=== PATIENT | male | born 1990 | race Two or more races ===

== ENCOUNTER 2025-06-30 11:56 | Inpatient (IN) | payer MEDICAID, OTHER ==
[~2025-06-30] VITALS: Ht 175.3 cm; Wt 68.0 kg
--- NOTE | 2025-06-30 14:05 | ED.PDOC ---
Musculoskeletal HPI Comments Patient is a 35-year-old male with no significant past medical history who comes in due to right-sided inguinal pain along with right knee pain. According to the patient, the right inguinal pain started 2 weeks ago, however, has been progressively worsening over the last 2 days, he describes the pain as constant, stabbing, worsened with walking and relieved by taking ibuprofen and 10/10 in intensity. On review of systems patient is complaining of fever, chills, urinary frequency. Patient had blood work completed outside which shows a platelet count of 779, which together with his symptoms is what prompted him to come to the ER. Patient was noted to have WBC 11.9, hemoglobin 9.3 and thrombocytosis at 891 K. right lower extremity Doppler was negative, however patient was noted to have painful inguinal lymphadenopathy measuring greater than [address] abdomen pelvis with IV contrast was ordered. Chief Complaint: Abnormal LAB's Time Seen by MD: 13:45 Reviewed Notes: Nurses Notes Allergies: Coded Allergies: Penicillins (Verified Allergy, Unknown, 06/30/25) Mode of Arrival: Ambulatory Past Medical History PAST MEDICAL HISTORY: Denies Surgical History: Denies all surgeries Social History Smoker: Non-Smoker Alcohol: Denies ETOH Use Drugs: Denies Drug Use Lives In: Home Constitutional: reports: chills, fever; denies: diaphoresis, fatigue, malaise, sweats, weakness, others EENTM: denies: blurred vision, double vision, ear bleeding, ear discharge, ear drainage, ear pain, ear ringing, eye pain, eye redness, hearing loss, mouth pain, mouth swelling, nasal discharge, nose bleeding, nose congestion, nose pain , photophobia, tearing, throat pain, throat swelling, voice changes, others Respiratory: denies: cough, hemoptysis, orthopnea, SOB at rest, shortness of breath, SOB with excertion, stridor, wheezing, others Cardiovascular: denies: chest pain, dizzy spells, diaphoresis, Dyspnea on exertion, edema, irregular heart beat, left arm pain, lightheadedness, palpitations, PND, syncope, others Gastrointestinal: denies: abdomen distended, abdominal pain, blood streaked bowels, constipated, diarrhea, dysphagia, difficulty swallowing, hematemesis, melena, nausea, poor appetite, poor fluid intake, rectal bleeding, rectal pain, vomiting, others Genitourinary: reports: frequency; denies: burning, dysuria, flank pain, hematuria, incontinence, penile discharge, penile sore, pain, testicle pain, testicle swelling, urgency, others Neurological: denies: dizziness, fainting, headache, left sided numbness, left sided weakness, numbness, paresthesia, pre-existing deficit, right sided numbness, right sided weakness, seizure, speech problems, tingling, tremors, weakness, others Musculoskeletal: denies: back pain, gout, joint pain, joint swelling, muscle pain, muscle stiffness, neck pain, others Integumetry: denies: bruises, change in color, change in hair/nails, dryness, laceration, lesions, lumps, rash, wounds, others Allergic/Immunocompromised: denies: Difficulty Healing, Frequent Infections, Hives, Itching, others Hematologic/Lymphatic: denies: anemia, blood clots, easy bleeding, easy bruising, swollen glands, others Endocrine: denies: excessive hunger, excessive sweating, excessive thirst, excessive urination, flushing, intolerance to cold, intolerance to heat, unexplained weight gain, unexplained weight loss, others Psychiatric: denies: anxiety, bipolar disorder, depression, hopeless, panic disorder, schizophrenia, sleepless, suicidal, others Physical Exam General Appearance: No Apparent Distress, None, Normal HEENT: Normal ENT Inspection, PERRL/EOMI Neck: Non-Tender, Normal, Normal Inspection Respiratory: Lungs Clear, No Respiratory Distress Cardiovascular: No Edema, No JVD, No Murmur, None, No Gallop, Tachycardia Breast Exam: Deferred Gastrointestinal: Non Tender, No Pulsatile Mass, Normal Bowel Sounds Genitalia: Deferred Pelvic: Other (Pelvic exam performed in the presence of a male fellmongering machine operator, patient noted to have minimal to moderate tenderness to palpation in the right inguinal ligament, lymphadenopathy noted.) Rectal: Rectal Exam not done Extremities: Swelling, Tender Neurologic: No Motor Deficits, None, Normal Affect Cerebellar Function: Normal Reflexes: NOT DONE Skin: Dry, Normal Color, Warm Peripheral Pulses: 2+ dorsalis pedis (R), 2+ dorsalis pedis (L), 2+ Radial (R), 2+ Radial (L) Lymphatic: None Was a procedure done? Was a procedure done?: Yes Sedation Sedation?: No Informed consent obtained: No Arthrocentesis Indication: Diagnostic Evaluation Procedure: Sterile Preparation Location: Right Knee Fluid: Amount, Clear Informed consent obtained: Yes Risks/benefits/alt described: Yes Differential Diagnosis EXT Differential Diagnosis: Cellulitis, Deep Vein Thrombosis, Sprain, Strain, Septic, Arthritis, Bursitis X-Ray, Labs, Meds, VS Vital Signs Date Time Temp Pulse Resp B/P (MAP) Pulse Ox O2 Delivery O2 Flow Rate FiO2 06/30/25 11:58 98.0 134 18 125/86 100 98.0 Lab Test 06/30/25 15:13 06/30/25 14:07 Range/Units Urine Color Light-yellow Yellow Urine Clarity Clear Clear Urine pH 6.5 5.0-9.0 Urine Specific [place] 1.015 1.001-1.035 Urine Protein Negative Negative Urine Ketones 2+ H Negative Urine Blood Negative Negative /uL Urine Nitrite Negative Negative Urine Bilirubin Negative Negative Urine Urobilinogen Normal Negative mg/dL Urine Leukocyte Esterase Negative Negative /uL Urine RBC 1 0 - 3 /hpf Urine Microscopic WBC < 1 0-3 /HPF Urine Squamous Epithelial Cells None seen <5 /hpf Urine Bacteria None seen None Seen /hpf Urine Mucus Few None Seen Urine Glucose Normal Normal mg/dL Urine Opiates Screen Neg NEGATIVE Urine Fentanyl Screen Neg NEGATIVE Urine Barbiturates Screen Neg NEGATIVE Urine Phencyclidine Screen Neg NEGATIVE Urine Amphetamines Screen Neg NEGATIVE Urine Benzodiazepines Screen Neg NEGATIVE Urine Cocaine Screen Neg NEGATIVE Urine Cannabinoids Screen Neg NEGATIVE White Blood Count 11.9 H 4.4-10.8 10^3/uL Red Blood Count 3.96 L 4.5-5.90 10^6/uL Hemoglobin 9.3 L 13.5-17.5 g/dL Hematocrit 29.0 L 41.0-53.0 % Mean Corpuscular Volume 73.2 L 80.0-100.0 fL Mean Corpuscular Hemoglobin 23.5 L 28.0-32.0 pg Mean Corpuscular Hemoglobin Concent 32.2 32.0-36.0 g/dL Red Cell Distribution Width 19.4 H 11.8-14.3 % Platelet Count 891 *H 140-450 10^3/uL Mean Platelet Volume 6.7 L 6.9-10.8 fL Neutrophils (%) (Auto) 84.8 H 37.0-80.0 % Lymphocytes (%) (Auto) 8.9 L 10.0-50.0 % Monocytes (%) (Auto) 5.7 0.0-12.0 % Eosinophils (%) (Auto) 0.1 0.0-7.0 % Basophils (%) (Auto) 0.5 0.0-2.0 % Neutrophils # (Auto) 10.1 H 1.6-8.6 10 ^3/uL Lymphocytes # (Auto) 1.1 0.4-5.4 10 ^3/uL Monocytes # (Auto) 0.7 0-1.3 10 ^3/uL Eosinophils # (Auto) 0 0-0.8 10 ^3/uL Basophils # (Auto) 0.1 0-0.2 10 ^3/uL Nucleated Red Blood Cells 0.0 % Platelet Estimate Markedly increased Large Platelets Few Hypochromasia (manual) Slight Microcytosis Slight Prothrombin Time 12.2 H 9.3-11.8 sec Prothrombin Time INR 1.17 H 0.9-1.15 Activated Partial Thromboplast Time 37.0 H 24.5-34.5 SEC Sodium Level 137 136-145 mmol/L Potassium Level 3.7 3.5-5.1 mmol/L Chloride Level 99 98-107 mmol/L Carbon Dioxide Level 27 20-31 mmol/L Anion Gap 11 5-15 Blood Urea Nitrogen 10 9-23 mg/dL Creatinine 0.88 0.700-1.30 mg/dL Glomerular Filtration Rate Calc 116 >90 mL/min BUN/Creatinine Ratio 11.4 10.0-20.0 Serum Glucose 100 74-106 mg/dL Hemoglobin A1c 5.5 <5.7 % A1C Calcium Level 9.8 8.7-10.4 mg/dL Phosphorus Level 3.2 2.4-5.1 mg/dL Magnesium Level 1.9 1.6-2.6 mg/dL Ferritin 555.5 H 22-322 ng/mL Total Bilirubin 0.4 0.2-1.0 mg/dL Direct Bilirubin 0.1 <0.3 mg/dL Aspartate Amino Transferase (AST) 35 13-40 U/L Alanine Aminotransferase (ALT) 52 H 7-40 U/L Alkaline Phosphatase 204 H 46-116 U/L Lactate Dehydrogenase 176 120-246 U/L Total Protein 9.8 H 5.7-8.2 g/dL Albumin 4.4 3.2-4.8 g/dL Triglycerides Level 77 < 150 mg/dL Cholesterol Level 180 < 200 mg/dL LDL Cholesterol 146 H < 100 mg/dL HDL Cholesterol 27 L 40-59 mg/dL Vitamin B12 Level 674 211-911 pg/mL Vitamin D 25-Hydroxy 39.7 30.0-100 ng/mL Thyroid Stimulating Hormone (TSH) 0.26 L 0.55-4.78 uIU/mL Microbiology Date/Time Source Procedure Growth Status 06/30/25 15:13 Voided Urine Urine Culture - Preliminary No growth Resulted Time of 1ST Reevaluation: 13:45 Reevaluation 1ST: Unchanged Patient Education/Counseling: Diagnosis, Treatment, Prognosis, Need For Follow Up Family Education/Counseling: No Family Present Departure 1 Departure Time of Disposition: 15:40 Impression: Primary Impression: Pelvic abscess Additional Impressions: STI (sexually transmitted infection) Septic arthritis Qualified Codes: M00.9 - Pyogenic arthritis, unspecified DVT (deep venous thrombosis) Qualified Codes: I82.401 - Acute embolism and thrombosis of unspecified deep veins of right lower extremity Essential thrombocytosis Malignancy Disposition: 09 ADMITTED INPATIENT Condition: Guarded Comments Patient was noted to be tachycardic, with leukocytosis, diagnostic arthrocentesis was performed with minimal fluid yield. Patient was admitted to the hospital for further management Critical Care Note Critical Care Time?: No Stability Stability form required: JOSEPH Nava RESIDENT Jun 30, 2025 14:05
[2025-06-30 14:20] LABS: Hemoglobin 9.3 g/dL (13.5-17.5); Nucleated Red Blood Cells % 0.0 %
[2025-06-30 14:21] LABS: Hematocrit 29.0 % (41.0-53.0); Mean Corpuscular Hemoglobin 23.5 pg (28.0-32.0); Mean Corpuscular Volume 73.2 fL (80.0-100.0)
[2025-06-30 14:36] LABS: Chloride 99 mmol/L (98-107); Potassium 3.7 mmol/L (3.5-5.1); Sodium 137 mmol/L (136-145)
[2025-06-30 14:37] LABS: Anion Gap 11 (5-15); Calcium 9.8 mg/dL (8.7-10.4); Carbon Dioxide 27 mmol/L (20-31)
[2025-06-30 14:42] LABS: BUN/Creatinine Ratio 11.4 (10.0-20.0); Blood Urea Nitrogen 10 mg/dL (9-23); Glucose 100 mg/dL (74-106)
--- NOTE | 2025-06-30 14:56 | DVH ---
Clinical History: R inguinal and knee tenderness Comparison: None Technique: Duplex Doppler evaluation of the deep venous system of the left lower extremity from the common femoral vein to the popliteal vein including color Doppler and spectral/pulsed waveform analysis was performed. Findings: The RIGHT common femoral vein demonstrates appropriate compressibility and waveform variability. There is compressibility/patency of the great saphenous vein at the proximal thigh. The femoral vein demonstrates appropriate compressibility and waveform variability. The deep femoral vein demonstrates appropriate compressibility and waveform variability. The popliteal vein demonstrates appropriate compressibility and waveform variability. There is normal compressibility at the tibioperoneal trunk. Right inguinal lymph nodes the largest measures 3.1 x 2.2 x 0.8 cm. Cortex measures 0.4 cm. Impression: 1. No left deep venous thrombosis. 2. If clinical concern/symptoms persist or worsen, short-interval follow-up study is suggested.
[2025-06-30 15:25] LABS: Urine Protein, UAD Negative (Negative)
--- NOTE | 2025-06-30 15:50 | DVHHPRES ---
History of Present Illness Resident Creating Document: RICHELLE FREEMAN History of Present Illness Luis Chino is a 35 year old male patient who presents to the ED with chief complaint of right groin pain. Per patient pain started approximately four months ago in the right groin, progress to right knee pain months ago, required using walker to mobilize approximately one month ago and finally went to chiropractor which worsened the pain. Patient was evaluated in a clinic ([facility]) who ordered complementary workup diagnosed in dyslipidemia, prediabetes, microcytic anemia, thrombocytopenia (ruled out STI including HIV, gonorrhea, chlamydia, syphilis and hepatitis), suggesting ibuprofen with partial relief of lower limb pain and evaluation in ER which prompted his visit. Patient also reports unintentional weight loss of 20 lb in the past four months, fever, chills and night sweats. Denies any other associated symptom. Past medical history: Dyslipidemia, prediabetes (5.8% hemoglobin), microcytic anemia, gastritis Surgical history: Denies Family history: And had breast cancer in aunt had stomach cancer. Social history: Lives in [place] with family (next of kin is ) he has been since the age of 23 in a monogamous relationship, STI workup was negative less than one week ago. Ex tobacco abuse (three cigarettes per day for two months) quit a proximally five years ago. 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 Denies current tobacco, alcohol and other drug abuse Allergies: Penicillin Home medication: Ibuprofen Patient seen and examined at bedside. Currently has no new complaints. Completed arthrocentesis of right knee with scares synovial fluid. Ordered right lower limb ultrasound which ruled out DVT and evidence right inguinal lymph nodes. Ordered abdomen and pelvis CT shows probable septic arthritis of right hip. Patient admitted for further evaluation. Past Medical History Per HPI Past Surgical History Per HPI Family History Per HPI Past Social History Per HPI Review of Systems Review of Systems Per HPI Allergies: Coded Allergies: Penicillins (Verified Allergy, Unknown, 06/30/25) Exam Vital Signs Vital Signs Date Time Temp Pulse Resp B/P (MAP) Pulse Ox O2 Delivery O2 Flow Rate FiO2 06/30/25 11:58 98.0 134 18 125/86 100 98.0 Exam Patient lying in bed, in no acute distress General: Lucid, afebrile, mucosae are moist Cardiovascular: Normal, tachycardic S1 and S2. No murmurs, gallops or rubs Respiratory: Normal ventilation mechanics. Clear lung sounds on auscultation Abdomen: Soft, nontender, no organomegaly, normal bowel sounds MSK/skin: Mobilizes 4 limbs, but presents decreased mobilization in right limb. Skin is dry and warm. Right knee swelling more than left, associated with warmth and mild tenderness. Right groin lymphadenopathy which is painful on palpation. Neurological: Oriented in 3 spheres. No motor no sensitive deficits. Pupils are isocoric and reactive Labs/Xrays Labs Test 06/30/25 15:13 06/30/25 14:07 Range/Units Urine Color Light-yellow Yellow Urine Clarity Clear Clear Urine pH 6.5 5.0-9.0 Urine Specific [place] 1.015 1.001-1.035 Urine Protein Negative Negative Urine Ketones 2+ H Negative Urine Blood Negative Negative /uL Urine Nitrite Negative Negative Urine Bilirubin Negative Negative Urine Urobilinogen Normal Negative mg/dL Urine Leukocyte Esterase Negative Negative /uL Urine RBC 1 0 - 3 /hpf Urine Microscopic WBC < 1 0-3 /HPF Urine Squamous Epithelial Cells None seen <5 /hpf Urine Bacteria None seen None Seen /hpf Urine Mucus Few None Seen Urine Glucose Normal Normal mg/dL White Blood Count 11.9 H 4.4-10.8 10^3/uL Red Blood Count 3.96 L 4.5-5.90 10^6/uL Hemoglobin 9.3 L 13.5-17.5 g/dL Hematocrit 29.0 L 41.0-53.0 % Mean Corpuscular Volume 73.2 L 80.0-100.0 fL Mean Corpuscular Hemoglobin 23.5 L 28.0-32.0 pg Mean Corpuscular Hemoglobin Concent 32.2 32.0-36.0 g/dL Red Cell Distribution Width 19.4 H 11.8-14.3 % Platelet Count 891 *H 140-450 10^3/uL Mean Platelet Volume 6.7 L 6.9-10.8 fL Neutrophils (%) (Auto) 84.8 H 37.0-80.0 % Lymphocytes (%) (Auto) 8.9 L 10.0-50.0 % Monocytes (%) (Auto) 5.7 0.0-12.0 % Eosinophils (%) (Auto) 0.1 0.0-7.0 % Basophils (%) (Auto) 0.5 0.0-2.0 % Neutrophils # (Auto) 10.1 H 1.6-8.6 10 ^3/uL Lymphocytes # (Auto) 1.1 0.4-5.4 10 ^3/uL Monocytes # (Auto) 0.7 0-1.3 10 ^3/uL Eosinophils # (Auto) 0 0-0.8 10 ^3/uL Basophils # (Auto) 0.1 0-0.2 10 ^3/uL Nucleated Red Blood Cells 0.0 % Platelet Estimate Markedly increased Large Platelets Few Hypochromasia (manual) Slight Microcytosis Slight Sodium Level 137 136-145 mmol/L Potassium Level 3.7 3.5-5.1 mmol/L Chloride Level 99 98-107 mmol/L Carbon Dioxide Level 27 20-31 mmol/L Anion Gap 11 5-15 Blood Urea Nitrogen 10 9-23 mg/dL Creatinine 0.88 0.700-1.30 mg/dL Glomerular Filtration Rate Calc 116 >90 mL/min BUN/Creatinine Ratio 11.4 10.0-20.0 Serum Glucose 100 74-106 mg/dL Calcium Level 9.8 8.7-10.4 mg/dL Ferritin 555.5 H 22-322 ng/mL SEPSIS Sepsis Screen Date sepsis recognized/suspect: Jun 30, 2025 Time Sepsis recognized/suspect: 1200 Recent Procedure: No On Antibiotic Therapy: No Respiratory Rate >20: No Heart Rate >90: Yes Temp<36 C (96.8 F) or >38.3 C: No SBP <90 or MAP <65 mmHG: No New Acute Mental Status Change: No Is the patient on CPAP, BIPAP,: No Physician Orders Rt Lower Dvt (06/30/25 13:58) Ct Ab Pel With Iv Con Only (06/30/25 15:35) Vital Signs Date Time Temp Pulse Resp B/P (MAP) Pulse Ox O2 Delivery O2 Flow Rate FiO2 06/30/25 11:58 98.0 134 18 125/86 100 98.0 Laboratory Tests Test 06/30/25 14:07 White Blood Count 11.9 10^3/uL (4.4-10.8) H Assessment/Plan Assessment/Plan ASSESSMENT Probable septic arthritis of right hip Rule out abscess of right suprapatellar region Ruled out DVT Transaminitis Dyslipidemia Prediabetes Microcytic anemia with elevated ferritin Thrombocytosis probably secondary to sepsis Gastritis Ruled out STI Ex ethanol abuse PLAN Patient was admitted to telemetry. Indicated IV fluids and empiric IV antibiotics (vancomycin and levofloxacin). Patient is allergic to penicillin Obtain arthrocentesis of right knee quit scares fluid, sent to culture Obtain moseley cultures Obtain lower limb ultrasound which ruled out DVT and evidence lymphadenopathy of right groin Obtain abdomen and pelvis CT which shows probable septic arthritis of right hip. Presents associated lymphadenopathies. Ultrasound of right knee shows who collection above knee joint. Consulted interventional Radiology for eventual aspiration of right hip during and aspiration of fluid collection above right knee Ordered peripheral smear to evaluate morphology of cells. Differential diagnosis includes infection versus malignancy. If deemed necessary, patient should undergo biopsy of lymph node in right groin. Ordered echocardiogram due to sepsis, to rule out valvulopathy versus vegetations. Goals of care discussed with patient for over 18 minutes: Full code status Discussed plan with Dr. Clayton, patient and nurses: Patient admitted to telemetry. Currently under empiric IV antibiotic and IV fluids. Obtain right knee arthrocentesis with scares fluid. Consulted interventional Radiology to evaluate arthrocentesis of right hip and aspiration of fluid collection above right knee. If deemed necessary patient should undergo biopsy of a lymph node of right groin. Ordered echocardiogram. Patient has poor prognosis Plan discussed with: Patient, Other (Nurses) Date of Service: Jun 30, 2025 Billing Provider: DANIAL CLAYTON MD Common Visit Codes: 35612-[id number] INP/OBS CARE (HIGH) Secondary Visit Codes: 91489-[id number] CARE PLAN 30 MINUTES RICHELLE FREEMAN RESIDENT Jun 30, 2025 15:50
[2025-06-30 17:00] LABS: Triglycerides 77.0 mg/dL (< 150)
[2025-06-30 17:01] LABS: Magnesium 1.9 mg/dL (1.6-2.6)
[2025-06-30 17:02] LABS: Cholesterol 180.0 mg/dL (< 200)
[2025-06-30 17:05] LABS: HDL Cholesterol 27.0 mg/dL (40-59)
[2025-06-30 17:07] LABS: INR 1.17 (0.9-1.15); Partial Thromboplastin Time 37.0 SEC (24.5-34.5); Prothrombin Time 12.2 sec (9.3-11.8)
[2025-06-30 17:25] LABS: Alanine Aminotransferase 52.0 U/L (7-40); Albumin 4.4 g/dL (3.2-4.8); Alkaline Phosphatase 204.0 U/L (46-116); Bilirubin, Total 0.4 mg/dL (0.2-1.0); Total Protein 9.8 g/dL (5.7-8.2)
[2025-06-30 17:38] LABS: Bilirubin, Direct 0.1 mg/dL (<0.3)
--- NOTE | 2025-06-30 18:02 | DVH ---
Indication: Painful inguinal lymphadenopathy Technique: CT axial images of the abdomen and pelvis are obtained with intravenous contrast. Coronal and sagittal reformats were obtained. Radiation Dose Information: CTDI volume is 11.72 mGy. Dose-length product is 648.76 mGy*cm Comparison: None FINDINGS: Right hepatic dome not completely visualized. Lung bases demonstrate no pleural effusion. Adrenal glands, spleen, pancreas unremarkable. No enhancing hepatic lesion. Again the right hepatic dome is not completely characterized. No CT evidence for cholelithiasis. No hydronephrosis. Gastric distention. Small bowel loops are normal in caliber. Colonic diverticula. Moderate volume stool in the colon. Normal appendix. Abdominal aorta normal in caliber. Periaortic/retroperitoneal lymphadenopathy measuring up to 10 mm. Moderate distended. No free pelvic fluid. There is right inguinal lymphadenopathy measuring up to 14 x 19 mm. Right iliac lymphadenopathy measuring up to 14 mm. There appears to be a right hip joint effusion, suboptimally characterized. IMPRESSION: Right hip effusion which is suboptimally characterized, concerning for potential septic arthritis and other etiologies given the associated lymphadenopathy. Recommend clinical correlation, ID/orthopedic consultation. MRI of the right hip with and without also recommended to further evaluate. Right inguinal, right iliac and retroperitoneal lymphadenopathy, possibly secondary to the underlying right hip fluid collection/process. Gastric distention. Other findings as described.
--- NOTE | 2025-06-30 18:08 | DVHNC2 ---
Procedure - Arthrocentesis Date/Time: 06/30/2517:45 Indication: Synovial fluid sampling, r/o septic arthritis Procedure shredder operator: Dr. Taylor resident Print Shop Chief Clerk: Dr. Devlin Location: Right Knee Appropriate consent was obtained and is documented on the chart. The skin overlying the joint was prepped and draped in a sterile fashion. Under constant aspiration, a 20g needle was advanced into the joint space. Clear fluid was evacuated from the joint. A total of 2cc of fluid was removed. The needle was removed and bleeding was controlled. There were no major complications and the patient tolerated the procedure well. Synovial fluid samples were sent to the lab for analysis. Total time: 20 mins EBL: < 5 cc JOSEPH TAYLOR Jun 30, 2025 18:08
[2025-06-30] MEDS: ONDANSETRON HCL 4 MG/2 ML VIAL IV PRN (18:24)
[2025-06-30] MEDS: ENOXAPARIN SOD 100 MG/1 ML SYRINGE SC ONE (18:25)
[2025-06-30] MEDS: MORPHINE SULFATE INJ 2 MG/ml SYRG IV PRN (18:27)
[2025-06-30] MEDS ORDERED: VANCOMYCIN PER PHARMACY 0 MG IV SCH (18:45)
[2025-06-30] MEDS: IOHEXOL 300 MG/ML 100ML BOTTLE IJ ONE (18:47)
[2025-06-30] MEDS: ACETAMINOPHEN 325 MG TAB PO PRN (18:53)
[2025-06-30] MEDS: LACTATED RINGER'S 2,000 ML IV ONE (19:02)
--- NOTE | 2025-06-30 19:09 | ECG ---
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
[2025-06-30] MEDS: VANCOMYCIN 1.5GM/250ML 250 ML IV ONE (20:32)
[2025-06-30 20:42] VITALS: PULSE 135; RESP 17; O2SAT 100
--- NOTE | 2025-06-30 21:21 | DVH ---
Exam: US RIGHT LOWER EXTREMITY ULTRASOU Date: 06/30/2025 06:16 PM Clinical History: Rule out septic arthritis of the knee Comparison: None Technique: Targeted sonographic evaluation of the soft tissues of the right lower extremity (knee) was obtained utilizing grayscale and color Doppler imaging. Findings: There is no evidence for drainable collection. There is no evidence for solid or cystic mass in the site. No vascular abnormalities identified at this site. Complex fluid above of the right knee measuring 4.7 x 4.6 x 0.7 cm. IMPRESSION: 1. Complex fluid above the right knee.
[2025-06-30] MEDS: LACTATED RINGER'S 1,000 ML IV ONE (21:57)
[2025-06-30 22:00] VITALS: PULSE 132; RESP 22; O2SAT 100
[2025-06-30] MEDS ORDERED: VANCOMYCIN 1GM/250ML KIT 250 ML IV SCH (22:00)
[2025-06-30 22:24] LABS: Total Iron Binding Capacity 255.0 ug/dL (250-425)
[2025-06-30 22:24] LABS: Amphetamine Screen, Urine Neg (NEGATIVE); Barbiturate Scree,Urine Neg (NEGATIVE); Benzodiazephine Screen, Urine Neg (NEGATIVE); Cannabinoid Screen, Urine Neg (NEGATIVE); Cocaine Screen, Urine Neg (NEGATIVE); Opiate Scree,Urine Neg (NEGATIVE); Phencyclidine Screen, Urine Neg (NEGATIVE)
[2025-06-30 22:27] LABS: Free T4 (Free Thyroxine) 1.32 ng/dL (0.89-1.76)
[2025-06-30 22:29] LABS: Iron 17.0 ug/dL (65-175)
--- NOTE | 2025-07-01 05:06 | DVH ---
CHEST RADIOGRAPH Indication: Sepsis Technique: Single frontal view of the chest was obtained Comparison: None FINDINGS: Lines and Tubes: None Lungs: No focal consolidation. Pleura: No effusion. No pneumothorax. Cardiomediastinal contours: Unremarkable Bones: No acute osseous abnormality. IMPRESSION: 1. No acute cardiopulmonary disease.
[2025-07-01] MEDS: VANCOMYCIN 1GM/250ML KIT 250 ML IV SCH (06:16)
[2025-07-01 07:43] LABS: Hemoglobin 9.1 g/dL (13.5-17.5); Nucleated Red Blood Cells % 0.0 %
[2025-07-01 07:45] LABS: Hematocrit 28.2 % (41.0-53.0); Mean Corpuscular Hemoglobin 23.5 pg (28.0-32.0); Mean Corpuscular Volume 72.7 fL (80.0-100.0)
[2025-07-01 08:10] VITALS: PULSE 113; RESP 17; O2SAT 98
[2025-07-01 09:24] LABS: Alanine Aminotransferase 34 U/L (7-40); Anion Gap 11 (5-15); Calcium 9.6 mg/dL (8.7-10.4); Carbon Dioxide 25 mmol/L (20-31); Chloride 102 mmol/L (98-107); Potassium 3.6 mmol/L (3.5-5.1); Sodium 138 mmol/L (136-145)
[2025-07-01 09:27] LABS: Albumin 3.9 g/dL (3.2-4.8)
[2025-07-01 09:28] LABS: Bilirubin, Total 0.5 mg/dL (0.2-1.0)
[2025-07-01] MEDS: ENOXAPARIN SOD 40 MG/0.4 ML SYRINGE SC SCH (09:31)
[2025-07-01 09:33] LABS: Alkaline Phosphatase 173 U/L (46-116); BUN/Creatinine Ratio 6.8 (10.0-20.0); Blood Urea Nitrogen < 5 mg/dL (9-23); Glucose 121 mg/dL (74-106); Total Protein 8.8 g/dL (5.7-8.2)
[2025-07-01] MEDS ORDERED: ENOXAPARIN SOD 100 MG/1 ML SYRINGE SC SCH (10:00)
--- NOTE | 2025-07-01 13:18 | DVH ---
EXAM: MRI MRI R HIP WO CONTRAST INDICATION: right hip joint effusion TECHNIQUE: Multiplanar and multisequence MR imaging of the right hip was performed in the absence of gadolinium contrast material. COMPARISON: None FINDINGS: [BONE]: Sacroiliac joints and pubic symphysis intervals are normal. Inconspicuous asymmetric osteitis of the right femoral head to neck and right acetabulum. Possible developing osseous erosion incompletely characterized. [MUSCLES]: Mild muscle edema surrounding the right hip joint primarily affecting gluteus medius muscle belly. [JOINT SPACE]: Right hip joint effusion with asymmetric severe right hip joint space loss suspected. Primary diagnosis of exclusion led by septic arthritis. Alternative differential includes crystalline deposition arthropathy such as pseudogout versus gout. Recommend joint aspiration. [ALIGNMENT]: Hip alignment is normal. The femoral head neck contour is normal. [BURSAE]: No trochanteric or iliopsoas bursal collection. [LABRUM/CARTILAGE]: Suspected macerated tearing of the right superior labrum . Diffuse cartilage thinning [LIGAMENTS]: Intact ligamentum teres, acetabular transverse ligament, and joint capsular ligaments. [TENDONS:] Intact rectus femoris, hamstring, and gluteal tendons. [OTHER]: None IMPRESSION: 1. Right hip joint effusion with asymmetric severe right hip joint space loss and suspected developing osseous erosion. 2. Primary diagnosis of exclusion is septic arthritis. 3. Alternative differential includes crystalline deposition arthropathy such as pseudogout versus gout. 4. Recommend joint aspiration.
[2025-07-01 14:00] VITALS: BP 130/94; PULSE 138; RESP 18; TEMP 98.7; O2SAT 100
[2025-07-01 15:30] VITALS: BP 121/85; PULSE 118; RESP 16; TEMP 98.8; O2SAT 97
--- NOTE | 2025-07-01 15:30 | DVHINCON2 ---
Date of service: Jul 01, 2025 Reason for Consultation Right hip and right knee pain History of Present Illness Mr. Barfield is a 35-year-old male who was brought to the hospital due to complaints of a right hip and right knee pain. Patient notes that he has been experiencing right hip pain for several months but noticed that over the last month his pain has been significantly worsened and is limiting his physical activities and quality of life. Patient notes that his pain is radiating into his right knee and will develop severe swelling to his right knee and is unable to walk or bear weight on that knee when it gets inflamed. Patient reports that he went to a chiropractor where he had an adjustment but felt that his pain was worsened afterwards and decided to come into the office for an evaluation. Past Medical History Dyslipidemia, prediabetes, and gastritis Past Surgical History Denies Family History Noncontributory Social History Patient denied smoking, EtOH, or illicit substance abuse Allergies: Coded Allergies: Penicillins (Verified Allergy, Unknown, 06/30/25) Current Medications Current Medications Medications (Trade) Dose Ordered Sig/Merly Route PRN Reason Start Time Stop Time Status Last Admin Acetaminophen (Tylenol Tablet) 325 mg Q4HP PRN PO MILD PAIN (1-3 PAIN SCALE) 06/30/25 16:00 07/01/25 06:34 Ondansetron HCl (Zofran) 4 mg Q4HP PRN IV NAUSEA / VOMITING 06/30/25 16:00 06/30/25 18:24 Morphine Sulfate 2 mg Q4HPRN PRN IV SEVERE PAIN (7-10 PAIN SCALE) 06/30/25 16:00 06/30/25 18:27 Enoxaparin Sodium (Lovenox) 70 mg Q12HR SC 07/01/25 10:00 06/30/25 18:45 DC Vancomycin HCl 0 ml @ 0 mls/hr PER PHARMACY IV 06/30/25 18:45 Levofloxacin/ Dextrose 100 ml @ 100 mls/hr DAILY IV 07/01/25 10:00 07/01/25 09:31 Vancomycin HCl 250 ml @ 200 mls/hr Q8HR IV 06/30/25 22:00 06/30/25 22:20 DC Enoxaparin Sodium (Lovenox) 40 mg DAILY SC 07/01/25 10:00 07/01/25 09:31 Vancomycin HCl 250 ml @ 200 mls/hr Q8HR IV 07/01/25 06:00 07/01/25 14:00 Review of Systems 10 point review of systems negative except as per HPI Vital Signs Vital Signs Date Time Temp Pulse Resp B/P (MAP) Pulse Ox O2 Delivery O2 Flow Rate FiO2 07/01/25 12:00 98.8 118 16 121/85 (97) 97 98.8 07/01/25 08:19 Room Air* 0 21 Physical Exam General appearance: A&O x4 in no acute distress HEENT: Normal ENT inspection, pharynx normal, TMs normal Neck: Full range of motion, nontender, normal inspection Respiratory: Chest nontender, without accessory muscle use, no respiratory distress Cardiovascular: No edema, no JVD, normal peripheral pulses Gastrointestinal: Soft, nontender, no organomegaly. Musculoskeletal: Right hip range of motion grossly limited with pain on movement, right knee range of motion 0-120 with mild pain on movement, no calf tenderness, normal capillary refill, no pedal edema, neurovascularly intact. Skin: Dry, normal color, warm Lymphatic: No adenopathy Labs/Diagnostic Data Labs Test 07/01/25 06:42 06/30/25 19:09 06/30/25 16:27 06/30/25 15:13 Range/Units White Blood Count 8.9 # 4.4-10.8 10^3/uL Red Blood Count 3.87 L 4.5-5.90 10^6/uL Hemoglobin 9.1 L 13.5-17.5 g/dL Hematocrit 28.2 L 41.0-53.0 % Mean Corpuscular Volume 72.7 L 80.0-100.0 fL Mean Corpuscular Hemoglobin 23.5 L 28.0-32.0 pg Mean Corpuscular Hemoglobin Concent 32.3 32.0-36.0 g/dL Red Cell Distribution Width 19.3 H 11.8-14.3 % Platelet Count 682 H 140-450 10^3/uL Mean Platelet Volume 7.8 6.9-10.8 fL Neutrophils (%) (Auto) 77.7 37.0-80.0 % Lymphocytes (%) (Auto) 13.6 10.0-50.0 % Monocytes (%) (Auto) 7.9 0.0-12.0 % Eosinophils (%) (Auto) 0.1 0.0-7.0 % Basophils (%) (Auto) 0.7 0.0-2.0 % Neutrophils # (Auto) 6.9 1.6-8.6 10 ^3/uL Lymphocytes # (Auto) 1.2 0.4-5.4 10 ^3/uL Monocytes # (Auto) 0.7 0-1.3 10 ^3/uL Eosinophils # (Auto) 0 0-0.8 10 ^3/uL Basophils # (Auto) 0.1 0-0.2 10 ^3/uL Nucleated Red Blood Cells 0.0 % Sodium Level 138 136-145 mmol/L Potassium Level 3.6 3.5-5.1 mmol/L Chloride Level 102 98-107 mmol/L Carbon Dioxide Level 25 20-31 mmol/L Anion Gap 11 5-15 Blood Urea Nitrogen < 5 L 9-23 mg/dL Creatinine 0.73 0.700-1.30 mg/dL Glomerular Filtration Rate Calc 123 >90 mL/min BUN/Creatinine Ratio 6.8 L 10.0-20.0 Serum Glucose 121 H 74-106 mg/dL Calcium Level 9.6 8.7-10.4 mg/dL Total Bilirubin 0.5 0.2-1.0 mg/dL Aspartate Amino Transferase (AST) 18 13-40 U/L Alanine Aminotransferase (ALT) 34 7-40 U/L Alkaline Phosphatase 173 H 46-116 U/L Total Protein 8.8 H 5.7-8.2 g/dL Albumin 3.9 3.2-4.8 g/dL Lactic Acid Level 1.5 0.4-2.0 mmol/L Reticulocyte Count (auto) 0.58 0.5-1.5 % Iron Level 17 L 65-175 ug/dL Total Iron Binding Capacity 255 250-425 ug/dL Percent Iron Saturation 6.7 L 20-55 % Folic Acid 12.09 >5.38 ng/mL Free Thyroxine (T4) Calculated 1.32 0.89-1.76 ng/dL Total Triiodothyronine (TT3) 1.51 0.60-1.81 ng/mL Urine Color Light-yellow Yellow Urine Clarity Clear Clear Urine pH 6.5 5.0-9.0 Urine Specific [place] 1.015 1.001-1.035 Urine Protein Negative Negative Urine Ketones 2+ H Negative Urine Blood Negative Negative /uL Urine Nitrite Negative Negative Urine Bilirubin Negative Negative Urine Urobilinogen Normal Negative mg/dL Urine Leukocyte Esterase Negative Negative /uL Urine RBC 1 0 - 3 /hpf Urine Microscopic WBC < 1 0-3 /HPF Urine Squamous Epithelial Cells None seen <5 /hpf Urine Bacteria None seen None Seen /hpf Urine Mucus Few None Seen Urine Glucose Normal Normal mg/dL Urine Opiates Screen Neg NEGATIVE Urine Fentanyl Screen Neg NEGATIVE Urine Barbiturates Screen Neg NEGATIVE Urine Phencyclidine Screen Neg NEGATIVE Urine Amphetamines Screen Neg NEGATIVE Urine Benzodiazepines Screen Neg NEGATIVE Urine Cocaine Screen Neg NEGATIVE Urine Cannabinoids Screen Neg NEGATIVE Test 06/30/25 14:07 Range/Units Platelet Estimate Markedly increased Large Platelets Few Hypochromasia (manual) Slight Microcytosis Slight Prothrombin Time 12.2 H 9.3-11.8 sec Prothrombin Time INR 1.17 H 0.9-1.15 Activated Partial Thromboplast Time 37.0 H 24.5-34.5 SEC Hemoglobin A1c 5.5 <5.7 % A1C Phosphorus Level 3.2 2.4-5.1 mg/dL Magnesium Level 1.9 1.6-2.6 mg/dL Ferritin 555.5 H 22-322 ng/mL Direct Bilirubin 0.1 <0.3 mg/dL Lactate Dehydrogenase 176 120-246 U/L Triglycerides Level 77 < 150 mg/dL Cholesterol Level 180 < 200 mg/dL LDL Cholesterol 146 H < 100 mg/dL HDL Cholesterol 27 L 40-59 mg/dL Vitamin B12 Level 674 211-911 pg/mL Vitamin D 25-Hydroxy 39.7 30.0-100 ng/mL Thyroid Stimulating Hormone (TSH) 0.26 L 0.55-4.78 uIU/mL Microbiology Date/Time Source Procedure Growth Status 06/30/25 15:13 Voided Urine Urine Culture - Preliminary No growth Resulted Right hip MRI reviewed and demonstrated: Right hip joint effusion with asymmetric severe right hip joint space loss and suspected developing osseous erosion. Assessment Right hip and right knee pain Plan/Recommendation I had a very lengthy discussion with the patient and after discussing his case and reviewing his imaging studies with Dr. Sargent we have recommended against any surgical intervention at this time. Patient reports that he was taken down with Interventional Radiology right before my evaluation and an attempt was made to perform an arthrocentesis of his right hip and right knee but was unsuccessfully able to drain any fluid. Given the patient's imaging studies revealed degenerative changes to his right hip and he has full range of motion to his right knee with mostly mild pain on movement and reports having episodes of exacerbation with pain to his right knee only when it is inflamed and recommended continuing with conservative treatment with rice. I advised the patient to follow up with our office on an outpatient basis for further evaluation and treatment options discussion. Patient understood and agreed. Thank for allowing us to participate in the care of your patient. Plan discussed with: Patient, Spouse SHWETA TABARES Jul 01, 2025 15:30
--- NOTE | 2025-07-01 16:05 | DVHPNRES ---
Progress Note Date Seen: Jul 01, 2025 Resident Creating Document: PEDRO GUO Medical Necessity Reason Pt with a Central, PICC or Fol: No Subjective Review of Systems Patient is a Setswana-speaking 35-year-old male with past medical history of hyperlipidemia, prediabetes, microcytic anemia and gastritis, presented to [facility] ED with complaint of right hip and right knee pain. He reports that the pain began four months ago in the right groin and progressively worsened, radiating to the right knee. Over the past month, the pain has significantly increased, limiting his physical activity and quality of life. He now requires a walker for mobility. The patient notes episodes of severe swelling in the right knee, during which he is unable to bear weight. He visited a chiropractor for an adjustment, but his pain worsened afterward, prompting him to seek emergency care. He was advised to take ibuprofen, which provided partial relief. He also reports unintentional weight loss of 20 pounds over the past four months, along with fever, chills, and night sweats. He denies any other associated symptoms. On evaluation in the ED, patient is febrile, tachycardic and tachypnea. Initial labs show significant microcytic anemia, ferritin 555.5, Iron 17, TIBC 255, % saturation 6.7, ALT 52, ALP 204, LDL 146, HDL 27. Abdominal CT shows markedly hydrops gallbladder with multiple gallstones and mild intrahepatic biliary ductal dilatation. The patient was placed NPO, started on IV antibiotics and IV fluids. Patient is admitted for further evaluation and management. Past medical history: Dyslipidemia, prediabetes (5.8% hemoglobin), microcytic anemia, gastritis Surgical history: Denies Family history: And had breast cancer in aunt had stomach cancer. Social history: Lives in [place] with family (next of kin is ) he has been since the age of 23 in a monogamous relationship, STI workup was negative less than one week ago. Ex tobacco abuse (three cigarettes per day for two months) quit a proximally five years ago. 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 Denies current tobacco, alcohol and other drug abuse Allergies: Penicillin Home medication: Ibuprofen Patient seen and examined at bedside. Patient is alert and oriented to time, place person and responding to all questions. Eyes: No Pain, No Vision change, No Conjunctivae inflammation, No Eyelid inflammation, No Other, No Redness ENT: No Ear pain, No Ear discharge, No Nose pain, No Nose discharge, No Nose congestion, No Mouth pain, No Mouth swelling, No Throat pain, No Throat swelling, No Other Cardiovascular: No Chest Pain, No Palpitations, No Orthopnea, No Paroxysmal No Dyspnea, No Edema, No Lt Headedness, No Other Respiratory: No Cough, No Dry, No Shortness of breath, No SOB with exertion, No Wheezing, No Hemoptysis, No Pleuritic Pain, No Sputum, No Other Gastrointestinal: No Nausea, No Vomiting, No Abdominal Pain, No Diarrhea, No Constipation, No Melena, No Hematochezia, No Other Genitourinary: No Dysuria, No Frequency, No Incontinence, No Hematuria, No Retention, No Other Musculoskeletal: No other, No neck pain, No shoulder pain, No arm pain, No back pain, No hand pain, hip pain, knee pain, leg pain, No foot pain Skin: No Rash, No Lesions, No Jaundice, No Bruising, No Other Objective vital signs Vital Sign Date Time Temp Pulse Resp B/P (MAP) Pulse Ox O2 Delivery O2 Flow Rate FiO2 07/01/25 15:30 98.8 118 16 121/85 (97) 97 98.8 07/01/25 15:30 Room Air* 0 21 Total Intake and Output 06/30/25 06/30/25 07/01/25 15:00 23:00 07:00 Intake Total 375 ml 875 ml Balance 375 ml 875 ml medications Current Medications Medications Dose Ordered Sig/Merly Route Start Time Stop Time Status Last Admin Dose Admin Acetaminophen 325 mg Q4HP PRN PO 06/30/25 16:00 07/01/25 06:34 325 MG Ondansetron HCl 4 mg Q4HP PRN IV 06/30/25 16:00 06/30/25 18:24 4 MG Morphine Sulfate 2 mg Q4HPRN PRN IV 06/30/25 16:00 06/30/25 18:27 2 MG Vancomycin HCl 0 ml @ 0 mls/hr PER PHARMACY IV 06/30/25 18:45 Levofloxacin/ Dextrose 100 ml @ 100 mls/hr DAILY IV 07/01/25 10:00 07/01/25 09:31 100 MLS/HR Enoxaparin Sodium 40 mg DAILY SC 07/01/25 10:00 07/01/25 09:31 40 MG Vancomycin HCl 250 ml @ 200 mls/hr Q8HR IV 07/01/25 06:00 07/01/25 14:00 200 MLS/HR Examination General Appearance: Cooperative. Well developed. Well nourished. NAD Head Exam: Normal inspection Neck Exam: Normal inspection. Non-tender. Normal alignment Pulmonary/Respiratory: Chest non-tender. Clear bilateral breath sounds, no crackles, no wheezing. Cardiovascular/Chest: Regular rate and rhythm. No murmurs. No JVD. Peripheral Pulses: 2+ Radial (R). 2+ Radial (L). 2+ Pedal (R). 2+ Pedal (L) Abdominal Exam: Normal bowel sounds. Soft. normal abdomen, no visible veins, Nontender. No hepatospenomegaly. No masses Ankle Exam: Negative ankle edema Lower extremities: lower extremity edema, pain in right hip and right knee on palpation and movement; mild tenderness noted, no swelling or erythema Neuro/Mental Status: A&O x4. Coherent. Thoughts/Psych: Normal thought pattern. Appropriate mood and affect. Good judgement and insight Skin Exam: Normal inspection. Normal color. Warm. Dry laboratory and microbiology Laboratory Tests 07/01/25 06:42 Test 07/01/25 06:42 Range/Units Serum Glucose 121 H 74-106 mg/dL Microbiology Date/Time Source Procedure Growth Status 06/30/25 15:13 Voided Urine Urine Culture - Preliminary No growth Resulted Labs and/or images reviewed: Labs reviewed by me, Image(s) reviewed by me Problem List/Assessment/Plan Problem List/Assessment/Plan Right hip septic arthritis Right knee complex fluid collection possible pseudogout versus gout Severe osteoarthritis Right inguinal, right iliac and retroperitoneal lymphadenopathy Sepsis due to above Ruled out DVT Hip MRI: Right hip joint effusion with asymmetric severe right hip joint space loss and suspected developing osseous erosion. Chest X-ray: No acute cardiopulmonary disease. Lower extremity US: Complex fluid above of the right knee measuring 4.7 x 4.6 x 0.7 cm. Abdomen/Pelvis CT: Right hip effusion which is suboptimally characterized, concerning for potential septic arthritis and other etiologies given the associated lymphadenopathy. Right inguinal, right iliac and retroperitoneal lymphadenopathy, possibly secondary to the underlying right hip fluid collection/process. Gastric distention. Extremity Venous Study: No left deep venous thrombosis. Orthopedic consultation : Orthopedic Dr. Sargent said no aspiration is needed for this patient, as the diagnosis of severe osteoarthritis is already established. pain management with morphine and Tylenol Levofloxacin IV daily Zofran 4 mg IV q.4 hours Vancomycin IV per pharmacy Blood culture Haptoglobin Urine bacterial culture Sputum culture Microcytic hypochromic anemia likely due to Iron deficiency anemia/Anemia of chronic disease Thrombocytosis monitor H&H Diet: NPO DVT prophylaxis: Lovenox 40mg Goals of care: Full code, discussed for >30 minutes on 07/01/25 Plan discussed with patient Plan discussed with Dr. Clayton Plan discussed with: Patient Date of Service: Jul 01, 2025 Billing Provider: DANIAL CLAYTON MD Common Visit Codes: [id number] INP/OBS CARE(HIGH) PEDRO GUO RESIDENT Jul 01, 2025 16:04 JEFFREY GUY RESIDENT Jul 02, 2025 15:01 DANIAL CLAYTON MD Jul 13, 2025 20:46
[2025-07-01 17:00] VITALS: BP 135/94; PULSE 111; RESP 18; TEMP 99.2; O2SAT 99
--- NOTE | 2025-07-01 17:53 | DVH ---
DATE: 06/2025 PROCEDURE: Attempted fine needle aspiration suprapatellar joint effusion HISTORY: RT KNEE ASPIRATION DOCUMENTATION: Informed consent was obtained and a procedural time out was performed. SEDATION: Moderate sedation was utilized during the procedure. The patient received benzodiazepines and opioids, the dosing of which was documented in the patients permanent medical record. Pre-sedation history and evaluation revealed no contraindications to sedation. FLUORO TIME: 0 minutes TECHNIQUE: Following standard prep and under ultrasound guidance both the right suprapatellar area and the right hip was scanned. No definite fluid collection was seen in the region of the right hip. I attempted to times to obtain a sample from the right suprapatellar area but since the fluid was too thick I was unable to aspirate any fluid. The procedure was then terminated. FINDINGS: Unsuccessful attempt to aspirate suprapatellar area on the right. IMPRESSION: 1. Unsuccessful attempt to aspirate fluid in the suprapatellar area on the right. No fluid was seen in the right hip region.
--- NOTE | 2025-07-01 19:12 | DVHSR ---
APPROVED REPORT EXAM: Two-dimensional and M-mode echocardiogram with Doppler and color Doppler. Blood Pressure: 121/86 mmHg INDICATION DVT RISK FACTORS Height: 5'9", Weight: 152 DIMENSIONS LVDd 5.1 (3.8-5.7cm) LA (2D) 4.1 (1.9-4.0cm) Aortic Root 3.2 (2.0-3.7cm) LVDs 3.1 (2.5-4.0cm) LA (MM) (1.9-4.0cm) Aortic Cusp Exc 1.7 (1.5-2.0cm) EF (%) 69.0 (55-70%) Rt. Atrium 4.2 (1.9-4.0cm) Asc. Aorta 2.8 cm IVSd 0.6 (0.7-1.1cm) RV (D) 4.0 (1.8-2.4cm) PWd 0.8 (0.7-1.1cm) Mitral Valve Mitral Mitral Stenosis E/A ratio 0.0 2D MVA cm2 Aortic Valve Aortic Valve Aortic Stenosis V1 1.32m/s AO Mean GR. 6mmHg V2 1.70m/s AO Peak GR. 12mmHg LVOT Diameter 1.8 (1.8-2.4cm) Doppler JOHN 1.97cm2 Pulmonic Valve V2 1.19m/s Tricuspid Valve TR Velocity 2.48m/s RVSP 28mmHg Other Information Quality : Technically Limited Rhythm : Technically limited study due to body habitus. Conclusion Technically good study. The patient is in a sinus tachycardia. Biatrial enlargement. Aortic root enlargement. Valves are normal. Left ventricular function is preserved. EF is 60% with normal right ventricular function. Mild TR. No pericardial effusion masses or vegetations discernible.
[2025-07-01 20:00] VITALS: PULSE 112; RESP 19; O2SAT 99
[2025-07-01 21:00] VITALS: BP 127/89; PULSE 112; RESP 19; TEMP 97.3; O2SAT 99
[2025-07-02] VITALS (7 sets, daily range): BP systolic 123–135; BP diastolic 78–90; PULSE 98–131; RESP 15–19; TEMP 97.9–98.2; O2SAT 94–100
[2025-07-02 06:10] LABS: Hemoglobin 9.0 g/dL (13.5-17.5)
[2025-07-02 06:14] LABS: Hematocrit 28.0 % (41.0-53.0); Mean Corpuscular Hemoglobin 23.4 pg (28.0-32.0); Mean Corpuscular Volume 72.9 fL (80.0-100.0); Nucleated Red Blood Cells % 0.0 %
[2025-07-02 06:39] LABS: Alanine Aminotransferase 28 U/L (7-40); Albumin 3.8 g/dL (3.2-4.8); Anion Gap 12 (5-15); BUN/Creatinine Ratio 10.8 (10.0-20.0); Calcium 9.9 mg/dL (8.7-10.4); Carbon Dioxide 25 mmol/L (20-31); Chloride 101 mmol/L (98-107); Glucose 76 mg/dL (74-106); Potassium 4.0 mmol/L (3.5-5.1); Sodium 138 mmol/L (136-145)
[2025-07-02 06:40] LABS: Alkaline Phosphatase 159 U/L (46-116); Blood Urea Nitrogen 8 mg/dL (9-23); Total Protein 8.9 g/dL (5.7-8.2)
[2025-07-02 06:41] LABS: Bilirubin, Total 0.4 mg/dL (0.2-1.0)
--- NOTE | 2025-07-02 14:50 | DVHPNRES ---
Progress Note Date Seen: Jul 02, 2025 Resident Creating Document: PEDRO GUO Medical Necessity Reason Pt with a Central, PICC or Fol: No Subjective Review of Systems Patient is a Divehi-speaking 35-year-old male with past medical history of hyperlipidemia, prediabetes, microcytic anemia and gastritis, presented to [facility] ED with complaint of right hip and right knee pain. He reports that the pain began four months ago in the right groin and progressively worsened, radiating to the right knee. Over the past month, the pain has significantly increased, limiting his physical activity and quality of life. He now requires a walker for mobility. The patient notes episodes of severe swelling in the right knee, during which he is unable to bear weight. He visited a chiropractor for an adjustment, but his pain worsened afterward, prompting him to seek emergency care. He was advised to take ibuprofen, which provided partial relief. He also reports unintentional weight loss of 20 pounds over the past four months, along with fever, chills, and night sweats. He denies any other associated symptoms. On evaluation in the ED, patient is febrile, tachycardic and tachypnea. Initial labs show significant microcytic anemia, ferritin 555.5, Iron 17, TIBC 255, % saturation 6.7, ALT 52, ALP 204, LDL 146, HDL 27. Abdominal CT shows markedly hydrops gallbladder with multiple gallstones and mild intrahepatic biliary ductal dilatation. The patient was placed NPO, started on IV antibiotics and IV fluids. Patient is admitted for further evaluation and management. On 07/02/25, the patient was seen and examined at bedside. Overnight events were reviewed. The patient is doing very well this morning with no complaints. He remains afebrile, with tachychardic (HR 113). His condition continues to improve. [employer] P[employer] Supervisor confirmed the patient plans to return home with family support and has no additional discharge needs. He has a front-wheeled walker for home use and agreed to the discharge plan. Past medical history: Dyslipidemia, prediabetes (5.8% hemoglobin), microcytic anemia, gastritis Surgical history: Denies Family history: And had breast cancer in aunt had stomach cancer. Social history: Lives in [place] with family (next of kin is ) he has been since the age of 23 in a monogamous relationship, STI workup was negative less than one week ago. Ex tobacco abuse (three cigarettes per day for two months) quit a proximally five years ago. 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 Denies current tobacco, alcohol and other drug abuse Allergies: Penicillin Home medication: Ibuprofen Patient seen and examined at bedside. Patient is alert and oriented to time, place person and responding to all questions. Eyes: No Pain, No Vision change, No Conjunctivae inflammation, No Eyelid inflammation, No Other, No Redness ENT: No Ear pain, No Ear discharge, No Nose pain, No Nose discharge, No Nose congestion, No Mouth pain, No Mouth swelling, No Throat pain, No Throat swelling, No Other Cardiovascular: No Chest Pain, No Palpitations, No Orthopnea, No Paroxysmal No Dyspnea, No Edema, No Lt Headedness, No Other Respiratory: No Cough, No Dry, No Shortness of breath, No SOB with exertion, No Wheezing, No Hemoptysis, No Pleuritic Pain, No Sputum, No Other Gastrointestinal: No Nausea, No Vomiting, No Abdominal Pain, No Diarrhea, No Constipation, No Melena, No Hematochezia, No Other Genitourinary: No Dysuria, No Frequency, No Incontinence, No Hematuria, No Retention, No Other Musculoskeletal: No other, No neck pain, No shoulder pain, No arm pain, No back pain, No hand pain, hip pain, knee pain, leg pain, No foot pain Skin: No Rash, No Lesions, No Jaundice, No Bruising, No Other Objective vital signs Vital Sign Date Time Temp Pulse Resp B/P (MAP) Pulse Ox O2 Delivery O2 Flow Rate FiO2 07/02/25 13:00 98.2 131 18 123/78 (93) 100 98.2 07/02/25 08:05 Room Air* 0 21 Total Intake and Output 07/01/25 07/01/25 07/02/25 15:00 23:00 07:00 Intake Total 600 ml 0 ml 250 ml Output Total 900 ml 250 ml Balance -300 ml -250 ml 250 ml medications Current Medications Medications Dose Ordered Sig/Merly Route Start Time Stop Time Status Last Admin Dose Admin Acetaminophen 325 mg Q4HP PRN PO 06/30/25 16:00 07/01/25 06:34 325 MG Ondansetron HCl 4 mg Q4HP PRN IV 06/30/25 16:00 06/30/25 18:24 4 MG Morphine Sulfate 2 mg Q4HPRN PRN IV 06/30/25 16:00 06/30/25 18:27 2 MG Vancomycin HCl 0 ml @ 0 mls/hr PER PHARMACY IV 06/30/25 18:45 Levofloxacin/ Dextrose 100 ml @ 100 mls/hr DAILY IV 07/01/25 10:00 07/02/25 10:09 100 MLS/HR Enoxaparin Sodium 40 mg DAILY SC 07/01/25 10:00 07/02/25 10:09 40 MG Vancomycin HCl 250 ml @ 200 mls/hr Q8HR IV 07/01/25 06:00 07/02/25 14:15 200 MLS/HR Examination General Appearance: Cooperative. Well developed. Well nourished. NAD Head Exam: Normal inspection Neck Exam: Normal inspection. Non-tender. Normal alignment Pulmonary/Respiratory: Chest non-tender. Clear bilateral breath sounds, no crackles, no wheezing. Cardiovascular/Chest: Regular rate and rhythm. No murmurs. No JVD. Peripheral Pulses: 2+ Radial (R). 2+ Radial (L). 2+ Pedal (R). 2+ Pedal (L) Abdominal Exam: Normal bowel sounds. Soft. normal abdomen, no visible veins, Nontender. No hepatospenomegaly. No masses Ankle Exam: Negative ankle edema Lower extremities: lower extremity edema, pain in right hip and right knee on palpation and movement; mild tenderness noted, no swelling or erythema Neuro/Mental Status: A&O x4. Coherent. Thoughts/Psych: Normal thought pattern. Appropriate mood and affect. Good judgement and insight Skin Exam: Normal inspection. Normal color. Warm. Dry laboratory and microbiology Laboratory Tests 07/02/25 05:38 Test 07/02/25 05:38 Range/Units Serum Glucose 76 74-106 mg/dL Microbiology Date/Time Source Procedure Growth Status 06/30/25 19:09 Blood Blood Culture - Preliminary NO GROWTH AFTER 24 HOURS OF INCUBATION. Resulted 06/30/25 15:13 Voided Urine Urine Culture - Preliminary Resulted Labs and/or images reviewed: Labs reviewed by me, Image(s) reviewed by me Problem List/Assessment/Plan Problem List/Assessment/Plan Right hip septic arthritis Right knee complex fluid collection possible pseudogout versus gout Severe osteoarthritis Right inguinal, right iliac and retroperitoneal lymphadenopathy Sepsis due to above Ruled out DVT Echocardiogram: Left ventricular function is preserved. EF is 60% with normal right ventricular function. Hip MRI: Right hip joint effusion with asymmetric severe right hip joint space loss and suspected developing osseous erosion. Chest X-ray: No acute cardiopulmonary disease. Lower extremity US: Complex fluid above of the right knee measuring 4.7 x 4.6 x 0.7 cm. Abdomen/Pelvis CT: Right hip effusion which is suboptimally characterized, concerning for potential septic arthritis and other etiologies given the associated lymphadenopathy. Right inguinal, right iliac and retroperitoneal lymphadenopathy, possibly secondary to the underlying right hip fluid collection/process. Gastric distention. Extremity Venous Study: No left deep venous thrombosis. Orthopedic consultation : Orthopedic Dr. Sargent said no aspiration is needed for this patient, as the diagnosis of severe osteoarthritis is already established. pain management with morphine and Tylenol Levofloxacin IV daily Zofran 4 mg IV q.4 hours Vancomycin IV per pharmacy Blood culture Haptoglobin Urine bacterial culture Sputum culture Microcytic hypochromic anemia likely due to Iron deficiency anemia/Anemia of chronic disease Thrombocytosis monitor H&H Diet: Regular DVT prophylaxis: Lovenox 40mg Goals of care: Full code, discussed for >30 minutes on 07/02/25 Plan discussed with patient Plan discussed with Dr. Clayton Plan discussed with: Patient My Orders My Orders Orders - PEDRO GUO Procedure Category Date Status Time Regular Diet DIET 07/02/25 Transmitted Lunch Date of Service: Jul 02, 2025 Billing Provider: DANIAL CLAYTON MD Common Visit Codes: [id number] INP/OBS CARE(HIGH) PEDRO GUO Jul 02, 2025 14:50 DANIAL CLAYTON MD Jul 13, 2025 21:02
[2025-07-03 00:39] VITALS: BP 126/90; PULSE 96; RESP 16; TEMP 97.9; O2SAT 99
[2025-07-03] MEDS: VANCOMYCIN 1GM/250ML KIT 250 ML IV SCH (01:31)
[2025-07-03 04:52] VITALS: BP 131/89; PULSE 100; RESP 19; TEMP 98.2; O2SAT 100
[2025-07-03 06:39] LABS: Hemoglobin 9.3 g/dL (13.5-17.5)
[2025-07-03 06:43] LABS: Hematocrit 29.5 % (41.0-53.0); Mean Corpuscular Hemoglobin 23.1 pg (28.0-32.0); Mean Corpuscular Volume 73.3 fL (80.0-100.0); Nucleated Red Blood Cells % 0.1 %
[2025-07-03 06:55] LABS: Alanine Aminotransferase 25 U/L (7-40); Anion Gap 10 (5-15); BUN/Creatinine Ratio 13.1 (10.0-20.0); Blood Urea Nitrogen 11 mg/dL (9-23); Calcium 9.7 mg/dL (8.7-10.4); Carbon Dioxide 29 mmol/L (20-31); Chloride 102 mmol/L (98-107); Glucose 98 mg/dL (74-106); Potassium 4.1 mmol/L (3.5-5.1); Sodium 141 mmol/L (136-145)
[2025-07-03 06:56] LABS: Albumin 3.7 g/dL (3.2-4.8)
[2025-07-03 06:58] LABS: Alkaline Phosphatase 145 U/L (46-116); Bilirubin, Total 0.2 mg/dL (0.2-1.0); Total Protein 8.6 g/dL (5.7-8.2)
[2025-07-03 08:00] VITALS: RESP 18; O2SAT 94
[2025-07-03 09:00] VITALS: BP 121/88; PULSE 107; RESP 18; TEMP 97.7; O2SAT 100
[2025-07-03] MEDS ORDERED: LEVO500T91 PO (11:24)
[2025-07-03] MEDS ORDERED: IBUP-1456 PO (11:28)
--- NOTE | 2025-07-03 11:30 | DVHDS2 ---
PEDRO GUO RESIDENT 07/03/25 1130: Discharge Summary Date of Admission Jun 30, 2025 at 15:51 Date of Discharge: Jul 03, 2025 Admitting Diagnosis right hip and right knee pain Labs/Diagnostic Data: Laboratory Results Test 07/03/25 05:05 07/02/25 05:38 07/01/25 06:42 06/30/25 19:09 White Blood Count 5.8 10^3/uL (4.4-10.8) Red Blood Count 4.02 10^6/uL (4.5-5.90) Hemoglobin 9.3 g/dL (13.5-17.5) Hematocrit 29.5 % (41.0-53.0) Mean Corpuscular Volume 73.3 fL (80.0-100.0) Mean Corpuscular Hemoglobin 23.1 pg (28.0-32.0) Mean Corpuscular Hemoglobin Concent 31.5 g/dL (32.0-36.0) Red Cell Distribution Width 19.3 % (11.8-14.3) Platelet Count 777 10^3/uL (140-450) Mean Platelet Volume 7.5 fL (6.9-10.8) Neutrophils (%) (Auto) 59.7 % (37.0-80.0) Lymphocytes (%) (Auto) 26.3 % (10.0-50.0) Monocytes (%) (Auto) 10.1 % (0.0-12.0) Eosinophils (%) (Auto) 2.6 % (0.0-7.0) Basophils (%) (Auto) 1.3 % (0.0-2.0) Neutrophils # (Auto) 3.5 10 ^3/uL (1.6-8.6) Lymphocytes # (Auto) 1.5 10 ^3/uL (0.4-5.4) Monocytes # (Auto) 0.6 10 ^3/uL (0-1.3) Eosinophils # (Auto) 0.2 10 ^3/uL (0-0.8) Basophils # (Auto) 0.1 10 ^3/uL (0-0.2) Nucleated Red Blood Cells 0.1 % Sodium Level 141 mmol/L (136-145) Potassium Level 4.1 mmol/L (3.5-5.1) Chloride Level 102 mmol/L (98-107) Carbon Dioxide Level 29 mmol/L (20-31) Anion Gap 10 (5-15) Blood Urea Nitrogen 11 mg/dL (9-23) Creatinine 0.84 mg/dL (0.700-1.30) Glomerular Filtration Rate Calc 118 mL/min (>90) BUN/Creatinine Ratio 13.1 (10.0-20.0) Serum Glucose 98 mg/dL (74-106) Calcium Level 9.7 mg/dL (8.7-10.4) Total Bilirubin 0.2 mg/dL (0.2-1.0) Aspartate Amino Transferase (AST) 19 U/L (13-40) Alanine Aminotransferase (ALT) 25 U/L (7-40) Alkaline Phosphatase 145 U/L (46-116) Total Protein 8.6 g/dL (5.7-8.2) Albumin 3.7 g/dL (3.2-4.8) Vancomycin Level Trough 18.0 ug/mL (5-10) Lactic Acid Level 1.5 mmol/L (0.4-2.0) Test 06/30/25 16:27 06/30/25 15:13 06/30/25 14:07 Reticulocyte Count (auto) 0.58 % (0.5-1.5) Haptoglobin 536 mg/dL (17-317) Iron Level 17 ug/dL (65-175) Total Iron Binding Capacity 255 ug/dL (250-425) Percent Iron Saturation 6.7 % (20-55) Folic Acid 12.09 ng/mL (>5.38) Free Thyroxine (T4) Calculated 1.32 ng/dL (0.89-1.76) Total Triiodothyronine (TT3) 1.51 ng/mL (0.60-1.81) Urine Color Light-yellow (Yellow) Urine Clarity Clear (Clear) Urine pH 6.5 (5.0-9.0) Urine Specific [place] 1.015 (1.001-1.035) Urine Protein Negative (Negative) Urine Ketones 2+ (Negative) Urine Blood Negative /uL (Negative) Urine Nitrite Negative (Negative) Urine Bilirubin Negative (Negative) Urine Urobilinogen Normal mg/dL (Negative) Urine Leukocyte Esterase Negative /uL (Negative) Urine RBC 1 /hpf (0 - 3) Urine Microscopic WBC < 1 /HPF (0-3) Urine Squamous Epithelial Cells None seen /hpf (<5) Urine Bacteria None seen /hpf (None Seen) Urine Mucus Few (None Seen) Urine Glucose Normal mg/dL (Normal) Urine Opiates Screen Neg (NEGATIVE) Urine Fentanyl Screen Neg (NEGATIVE) Urine Barbiturates Screen Neg (NEGATIVE) Urine Phencyclidine Screen Neg (NEGATIVE) Urine Amphetamines Screen Neg (NEGATIVE) Urine Benzodiazepines Screen Neg (NEGATIVE) Urine Cocaine Screen Neg (NEGATIVE) Urine Cannabinoids Screen Neg (NEGATIVE) Platelet Estimate Markedly increased Large Platelets Few Hypochromasia (manual) Slight Microcytosis Slight Prothrombin Time 12.2 sec (9.3-11.8) Prothrombin Time INR 1.17 (0.9-1.15) Activated Partial Thromboplast Time 37.0 SEC (24.5-34.5) Hemoglobin A1c 5.5 % A1C (<5.7) Phosphorus Level 3.2 mg/dL (2.4-5.1) Magnesium Level 1.9 mg/dL (1.6-2.6) Ferritin 555.5 ng/mL (22-322) Direct Bilirubin 0.1 mg/dL (<0.3) Lactate Dehydrogenase 176 U/L (120-246) Triglycerides Level 77 mg/dL (< 150) Cholesterol Level 180 mg/dL (< 200) LDL Cholesterol 146 mg/dL (< 100) HDL Cholesterol 27 mg/dL (40-59) Vitamin B12 Level 674 pg/mL (211-911) Vitamin D 25-Hydroxy 39.7 ng/mL (30.0-100) Thyroid Stimulating Hormone (TSH) 0.26 uIU/mL (0.55-4.78) Other Laboratory Tests 07/03/25 05:05 Brief Hx & Hospital Course: The patient is a Iraqi-speaking 35-year-old male with a past medical history of hyperlipidemia, prediabetes, microcytic anemia, and gastritis who presented to [facility] Emergency Department with complaints of right hip and right knee pain. He reported that the pain began four months ago in the right groin and progressively worsened, radiating to the right knee. Over the past month, the pain significantly increased, limiting his physical activity and quality of life, and he now requires a walker for mobility. He described episodes of severe swelling in the right knee during which he was unable to bear weight. He visited a chiropractor for an adjustment, but his pain worsened afterward, prompting him to seek emergency care. He was advised to take ibuprofen, which provided partial relief. He also reported unintentional weight loss of 20 pounds over the past four months, along with fever, chills, and night sweats. He denied other associated symptoms. On evaluation in the emergency department, the patient was febrile, tachycardic, and tachypneic. Initial laboratory results showed significant microcytic anemia, ferritin 555.5, iron 17, TIBC 255, percent saturation 6.7, ALT 52, ALP 204, LDL 146, and HDL 27. Abdominal CT revealed markedly hydrops gallbladder with multiple gallstones and mild intrahepatic biliary ductal dilatation. The patient was placed NPO and started on intravenous antibiotics and fluids. He was admitted for further evaluation and management. Hospital Course He remained afebrile but was tachycardic with a heart rate of 113. His condition continued to improve. check services clerk confirmed that the patient plans to return home with family support and has no additional discharge needs. He has a front- wheeled walker for home use and agreed to the discharge plan. Diagnostic workup included MRI of the right hip showing joint effusion with severe joint space loss and suspected developing osseous erosion. CT abdomen and pelvis revealed right hip effusion concerning for septic arthritis and associated lymphadenopathy involving the right inguinal, right iliac, and retroperitoneal regions. Lower extremity ultrasound demonstrated a complex fluid collection above the right knee measuring 4.7 x 4.6 x 0.7 cm. Chest X-ray showed no acute cardiopulmonary disease. Echocardiogram revealed preserved left ventricular function with an ejection fraction of 60% and normal right ventricular function. Venous Doppler ruled out deep venous thrombosis. Orthopedic consultation concluded that no aspiration was needed because severe osteoarthritis was already established. The patient was managed with intravenous vancomycin and levofloxacin, pain control with morphine and Tylenol, and Zofran for nausea. Blood cultures, haptoglobin, urine bacterial culture, and sputum culture were obtained. Microcytic hypochromic anemia was attributed to iron deficiency anemia or anemia of chronic disease, and thrombocytosis was monitored. The patient was placed on a regular diet and received DVT prophylaxis with Lovenox. Goals of care were discussed for more than 30 minutes, and the patient elected full code status. The plan was discussed with the patient and Dr. Clayton. On evaluation today, he states he is well, pain is manageable. His vitals have remained stable for discharge home, follow up visit in discharge clinic. All medications and recommendations were thoroughly explained and the patient states he understands and agrees. Detailed discussion held with patient at bedside were all questions were answered and concerns were addressed. Examination General Appearance: Cooperative. Well developed. Well nourished. NAD Head Exam: Normal inspection Neck Exam: Normal inspection. Non-tender. Normal alignment Pulmonary/Respiratory: Chest non-tender. Clear bilateral breath sounds, no crackles, no wheezing. Cardiovascular/Chest: Regular rate and rhythm. No murmurs. No JVD. Peripheral Pulses: 2+ Radial (R). 2+ Radial (L). 2+ Pedal (R). 2+ Pedal (L) Abdominal Exam: Normal bowel sounds. Soft. normal abdomen, no visible veins, Nontender. No hepatospenomegaly. No masses Ankle Exam: Negative ankle edema Lower extremities: lower extremity edema, pain in right hip and right knee on palpation and movement; mild tenderness noted, no swelling or erythema Neuro/Mental Status: A&O x4. Coherent. Thoughts/Psych: Normal thought pattern. Appropriate mood and affect. Good judgement and insight Skin Exam: Normal inspection. Normal color. Warm. Dry Case discussed with Dr. Clayton Operations or Procedures PATIENT: TERRY ROUSE ACCT: [id number] UNIT: [id number] : 1990 LOC: OVERFLOW ROOM / BED: [address] [place] [address] AGE / SEX: 35 / M ADM STATUS: ADM IN SERVICE 1135 ORDERING PHYSICIAN: DANIAL CLAYTON MD PROCEDURE(s): RHPMR - MRI R HIP WO CONTRAST REASON: right hip joint effusion ORDER NUMBER(s): [id number], ACCESSION NUMBER(s): [id number] EXAM: MRI MRI R HIP WO CONTRAST INDICATION: right hip joint effusion TECHNIQUE: Multiplanar and multisequence MR imaging of the right hip was performed in the absence of gadolinium contrast material. COMPARISON: None FINDINGS: [BONE]: Sacroiliac joints and pubic symphysis intervals are normal. Inconspicuous asymmetric osteitis of the right femoral head to neck and right acetabulum. Possible developing osseous erosion incompletely characterized. [MUSCLES]: Mild muscle edema surrounding the right hip joint primarily affecting gluteus medius muscle belly. [JOINT SPACE]: Right hip joint effusion with asymmetric severe right hip joint space loss suspected. Primary diagnosis of exclusion led by septic arthritis. Alternative differential includes crystalline deposition arthropathy such as pseudogout versus gout. Recommend joint aspiration. [ALIGNMENT]: Hip alignment is normal. The femoral head neck contour is normal. [BURSAE]: No trochanteric or iliopsoas bursal collection. [LABRUM/CARTILAGE]: Suspected macerated tearing of the right superior labrum . Diffuse cartilage thinning [LIGAMENTS]: Intact ligamentum teres, acetabular transverse ligament, and joint capsular ligaments. [TENDONS:] Intact rectus femoris, hamstring, and gluteal tendons. [OTHER]: None IMPRESSION: 1. Right hip joint effusion with asymmetric severe right hip joint space loss and suspected developing osseous erosion. 2. Primary diagnosis of exclusion is septic arthritis. 3. Alternative differential includes crystalline deposition arthropathy such as pseudogout versus gout. 4. Recommend joint aspiration. - PATIENT: TERRY ROUSE ACCT: [id number] UNIT: [id number] : 1990 LOC: CENTRAL ROOM / BED: [address] [place] [address] AGE / SEX: 35 / M ADM STATUS: ADM IN SERVICE 0937 ORDERING PHYSICIAN: RICHELLE FREEMAN PROCEDURE(s): THOUS - US GUIDANCE FOR NEEDLE PLACEME REASON: RT KNEE ASPIRATION ORDER NUMBER(s): [id number], ACCESSION NUMBER(s): [id number] DATE: 06/2025 PROCEDURE: Attempted fine needle aspiration suprapatellar joint effusion HISTORY: RT KNEE ASPIRATION DOCUMENTATION: Informed consent was obtained and a procedural time out was performed. SEDATION: Moderate sedation was utilized during the procedure. The patient received benzodiazepines and opioids, the dosing of which was documented in the patients permanent medical record. Pre-sedation history and evaluation revealed no contraindications to sedation. FLUORO TIME: 0 minutes TECHNIQUE: Following standard prep and under ultrasound guidance both the right suprapatellar area and the right hip was scanned. No definite fluid collection was seen in the region of the right hip. I attempted to times to obtain a sample from the right suprapatellar area but since the fluid was too thick I was unable to aspirate any fluid. The procedure was then terminated. FINDINGS: Unsuccessful attempt to aspirate suprapatellar area on the right. IMPRESSION: 1. Unsuccessful attempt to aspirate fluid in the suprapatellar area on the right. No fluid was seen in the right hip region. PATIENT: TERRY ROUSE ACCT: [id number] UNIT: [id number] : 1990 LOC: OVERFLOW ROOM / BED: [address] [place] [address] AGE / SEX: 35 / M ADM STATUS: ADM IN SERVICE 33 ORDERING PHYSICIAN: RICHELLE FREEMAN RESIDENT PROCEDURE(s): CXR1 - CHEST XRAY 1 VIEW REASON: Sepsis ORDER NUMBER(s): [id number], ACCESSION NUMBER(s): [id number] CHEST RADIOGRAPH Indication: Sepsis Technique: Single frontal view of the chest was obtained Comparison: None FINDINGS: Lines and Tubes: None Lungs: No focal consolidation. Pleura: No effusion. No pneumothorax. Cardiomediastinal contours: Unremarkable Bones: No acute osseous abnormality. IMPRESSION: 1. No acute cardiopulmonary disease. PATIENT: TERRY ROUSE ACCT: [id number] UNIT: [id number] : 1990 LOC: OVERFLOW ROOM / BED: 1014-ER / A AGE / SEX: 35 / M ADM STATUS: ADM IN SERVICE 8334 ORDERING PHYSICIAN: JOSEPH TAYLOR RESIDENT PROCEDURE(s): RLEXT - RIGHT LOWER EXTREMITY ULTRASOU REASON: Rule out septic arthritis of the knee ORDER NUMBER(s): [id number], ACCESSION NUMBER(s): [id number] Exam: US RIGHT LOWER EXTREMITY ULTRASOU Date: 06/30/2025 06:16 PM Clinical History: Rule out septic arthritis of the knee Comparison: None Technique: Targeted sonographic evaluation of the soft tissues of the right lower extremity (knee) was obtained utilizing grayscale and color Doppler imaging. Findings: There is no evidence for drainable collection. There is no evidence for solid or cystic mass in the site. No vascular abnormalities identified at this site. Complex fluid above of the right knee measuring 4.7 x 4.6 x 0.7 cm. IMPRESSION: 1. Complex fluid above the right knee. PATIENT: TERRY ROUSE ACCT: [id number] UNIT: [id number] : 1990 LOC: OVERFLOW ROOM / BED: 1014-ER / A AGE / SEX: 35 / M ADM STATUS: ADM IN SERVICE 8705 ORDERING PHYSICIAN: TAYLOR,EMAN RESIDENT PROCEDURE(s): ABPLIV - CT AB PEL WITH IV CON ONLY REASON: Painful inguinal lymphadenopathy ORDER NUMBER(s): [id number], ACCESSION NUMBER(s): [id number] Indication: Painful inguinal lymphadenopathy Technique: CT axial images of the abdomen and pelvis are obtained with intravenous contrast. Coronal and sagittal reformats were obtained. Radiation Dose Information: CTDI volume is 11.72 mGy. Dose-length product is 648.76 mGy*cm Comparison: None FINDINGS: Right hepatic dome not completely visualized. Lung bases demonstrate no pleural effusion. Adrenal glands, spleen, pancreas unremarkable. No enhancing hepatic lesion. Again the right hepatic dome is not completely characterized. No CT evidence for cholelithiasis. No hydronephrosis. Gastric distention. Small bowel loops are normal in caliber. Colonic diverticula. Moderate volume stool in the colon. Normal appendix. Abdominal aorta normal in caliber. Periaortic/retroperitoneal lymphadenopathy measuring up to 10 mm. Moderate distended. No free pelvic fluid. There is right inguinal lymphadenopathy measuring up to 14 x 19 mm. Right iliac lymphadenopathy measuring up to 14 mm. There appears to be a right hip joint effusion, suboptimally characterized. IMPRESSION: Right hip effusion which is suboptimally characterized, concerning for potential septic arthritis and other etiologies given the associated lymphadenopathy. Recommend clinical correlation, ID/orthopedic consultation. MRI of the right hip with and without also recommended to further evaluate. Right inguinal, right iliac and retroperitoneal lymphadenopathy, possibly secondary to the underlying right hip fluid collection/process. Gastric distention. Other findings as described. - PATIENT: TERRY ROUSE ACCT: [id number] UNIT: [id number] : 1990 LOC: ER ROOM / BED: / AGE / SEX: 35 / M ADM STATUS: REG ER SERVICE 1358 ORDERING PHYSICIAN: JOSEPH ATYLOR RESIDENT PROCEDURE(s): RLDVT - RT Lower DVT REASON: R inguinal and knee tenderness ORDER NUMBER(s): [id number], ACCESSION NUMBER(s): [id number] Clinical History: R inguinal and knee tenderness Comparison: None Technique: Duplex Doppler evaluation of the deep venous system of the left lower extremity from the common femoral vein to the popliteal vein including color Doppler and spectral/pulsed waveform analysis was performed. Findings: The RIGHT common femoral vein demonstrates appropriate compressibility and waveform variability. There is compressibility/patency of the great saphenous vein at the proximal thigh. The femoral vein demonstrates appropriate compressibility and waveform variability. The deep femoral vein demonstrates appropriate compressibility and waveform variability. The popliteal vein demonstrates appropriate compressibility and waveform variability. There is normal compressibility at the tibioperoneal trunk. Right inguinal lymph nodes the largest measures 3.1 x 2.2 x 0.8 cm. Cortex measures 0.4 cm. Impression: 1. No left deep venous thrombosis. 2. If clinical concern/symptoms persist or worsen, short-interval follow-up study is suggested. PATIENT: TERRY ROUSE ACCT: [id number] UNIT: [id number] : 1990 LOC: CENTRAL ROOM / BED: [address] [place] [address] AGE / SEX: 35 / M ADM STATUS: ADM IN SERVICE 1551 ORDERING PHYSICIAN: RICHELLE FREEMAN RESIDENT PROCEDURE(s): ECIDC - ECHO 2D MODE CARDIAC DOP REASON: DVT, r/o RV strain ORDER NUMBER(s): [id number], ACCESSION NUMBER(s): [id number] APPROVED REPORT EXAM: Two-dimensional and M-mode echocardiogram with Doppler and color Doppler. Blood Pressure: 121/86 mmHg INDICATION DVT RISK FACTORS Height: 5'9", Weight: 152 DIMENSIONS LVDd 5.1 (3.8-5.7cm) LA (2D) 4.1 (1.9-4.0cm) Aortic Root 3.2 (2.0- 3.7cm) LVDs 3.1 (2.5-4.0cm) LA (MM) (1.9-4.0cm) Aortic Cusp Exc 1.7 (1.5- 2.0cm) EF (%) 69.0 (55-70%) Rt. Atrium 4.2 (1.9-4.0cm) Asc. Aorta 2.8 cm IVSd 0.6 (0.7-1.1cm) RV (D) 4.0 (1.8-2.4cm) PWd 0.8 (0.7-1.1cm) Mitral Valve Mitral Mitral Stenosis E/A ratio 0.0 2D MVA cm2 Aortic Valve Aortic Valve Aortic Stenosis V1 1.32m/s AO Mean GR. 6mmHg V2 1.70m/s AO Peak GR. 12mmHg LVOT Diameter 1.8 (1.8-2.4cm) Doppler JOHN 1.97cm2 Pulmonic Valve V2 1.19m/s Tricuspid Valve TR Velocity 2.48m/s RVSP 28mmHg Other Information Quality : Technically Limited Rhythm : Technically limited study due to body habitus. Conclusion Technically good study. The patient is in a sinus tachycardia. Biatrial enlargement. Aortic root enlargement. Valves are normal. Left ventricular function is preserved. EF is 60% with normal right ventricular function. Mild TR. No pericardial effusion masses or vegetations discernible. SIGNED BY: GWEN KHAN Sr., MD SIGNED DATE/TIME: 07/01/251911 PATIENT: TERRY ROUSE ACCT: [id number] : 1990 LOC: OVERFLOW ROOM / BED: [address] [place] [address] / A AGE / SEX: 35 / M ADM STATUS: ADM IN SERVICE UNIT: [id number] ORDERING PHYSICIAN: ALAN DUNBAR MD PROCEDURE(s): EKG - ELECTROCARDIGRAM ORDER NUMBER(s): [id number], ACCESSION NUMBER(s): [id number] [facility] Test Date: 2025-06-30 Test Time: 18:34:45 Pat Name: TERRY ROUSE Department: ED Room: [address] [place] [address] Gender: M Well Cleaner: DR NAVAS: 1990 Requested By: ALAN DUNBAR Order Number: [id number] Reading MD: Gwen Khan Measurements Intervals [place] Rate: 148 P: 72 ID: [id number] QRS: 103 QRSD: 79 T: -6 QT: 275 QTc: 432 Interpretive Statements Sinus tachycardia Right axis deviation Borderline T wave abnormalities Electronically Signed On 07-01-2025 11:45:30 PST by Gwen Khan Please click the below link to view image of tracing. DICTATED BY:GWEN KHAN Sr., MD DICTATED DATE/TIME:06/30/25 183 ELECTRONICALLY SIGNED BY:GWEN KHAN Sr., MD 07/01/25 1145 ELECTRONICALLY CO-SIGNED BY: - PATIENT: TERRY ROUSE ACCT: [id number] : 1990 LOC: OVERFLOW ROOM/ROOM: [address] [place], [place] [address] AGE/SEX: 35/M ADM STATUS: ADM IN ADM DATE: 06/30/25 UNIT: [id number] HEALTH INFORMATION MANAGEMENT PROCEDURE NOTE - DV :[id number] ISigned ORDERING PHYSICIAN: PROCEDURE(s): ORDER NUMBER(s): , ACCESSION NUMBER(s): Procedure - Arthrocentesis Date/Time: 06/30/25/17:45 Indication: Synovial fluid sampling, r/o septic arthritis Procedure lump machine operator: Dr. Taylor resident Disc Ruler Operator: Dr. Dunbar Location: Right Knee Appropriate consent was obtained and is documented on the chart. The skin overlying the joint was prepped and draped in a sterile fashion. Under constant aspiration, a 20g needle was advanced into the joint space. Clear fluid was evacuated from the joint. A total of 2cc of fluid was removed. The needle was removed and bleeding was controlled. There were no major complications and the patient tolerated the procedure well. Synovial fluid samples were sent to the lab for analysis. Total time: 20 mins EBL: < 5 cc Condition at Discharge: Stable Final Diagnosis/Problems List Right hip septic arthritis Right knee complex fluid collection possible pseudogout versus gout Severe osteoarthritis Right inguinal, right iliac and retroperitoneal lymphadenopathy Sepsis due to above Ruled out DVT Microcytic hypochromic anemia likely due to Iron deficiency anemia/Anemia of chronic disease Thrombocytosis Discharge Disposition: Home Discharge Instruct/Medications Diet: Regular Activity: No Restrictions, As Tolerated Follow Up/Referral: Follow up DC clinic next week Medications: see new precriptions continue home medications Scheduled Levofloxacin Hemihydrate (Levaquin 500 Mg), 1 TAB PO DAILY Scheduled PRN Ibuprofen (Ibuprofen), 800 MG PO Q8HP PRN Discharge Statement: "Patient was advised to return to the ER or call 911 if any headaches, dizziness, shortness of breath, chest pain, abdominal pain, bleeding, fevers, or worsening of medical condition. Patient was counseled about treatment plan, medications, possible side effects, patientverbalized understanding. All questions were answered to the best of my ability. This discharge took greater then 30 minutes in planning, reviewing documentation, counseling the patient, and discussing with other team members." ASSESSMENT ASSESSMENT Assessment Right hip septic arthritis Right knee complex fluid collection possible pseudogout versus gout Severe osteoarthritis Right inguinal, right iliac and retroperitoneal lymphadenopathy Sepsis due to above Ruled out DVT Microcytic hypochromic anemia likely due to Iron deficiency anemia/Anemia of chronic disease Thrombocytosis Date of Service: Jul 03, 2025 Billing Provider: DANIAL CLAYTON MD Common Visit Codes: 61652-AUZ/OBS DISCH DAY >30min JEFFREY GUY RESIDENT 07/03/25 1518: Discharge Summary Discharge Instruct/Medications Scheduled Levofloxacin Hemihydrate (Levaquin 500 Mg), 1 TAB PO DAILY Scheduled PRN Ibuprofen (Ibuprofen), 800 MG PO Q8HP PRN PEDRO GUO RESIDENT Jul 03, 2025 11:30 JEFFREY GUY RESIDENT Jul 03, 2025 15:18
[2025-07-03 12:34] VITALS: TEMP 36.5
[2025-07-03 13:00] VITALS: BP 119/78; PULSE 102; RESP 18; TEMP 97.8; O2SAT 99
[2025-07-04] MEDS ORDERED: PANTOPRAZOLE 40 MG/10 ML VIAL INJ IV ONE (08:52)
== END 2025-07-03 15:35 | disposition home or self-care (01) | DRG 720 ==
LOC: ER 11:56 → OVERFLOW 15:51 → CENTRAL 07-01 14:11
PROVIDERS: ADMIT Internal Medicine Geriatric Medicine; ATTEND Internal Medicine Geriatric Medicine
PROC: 0S9C3ZZ Drainage of Right Knee Joint, Percutaneous Approach (ICD-10-PCS; principal; 2025-06-30)
DX: A41.9 Sepsis, unspecified organism (principal); D47.3 Essential (hemorrhagic) thrombocythemia; M00.9 Pyogenic arthritis, unspecified; D63.8 Anemia in other chronic diseases classified elsewhere; D50.9 Iron deficiency anemia, unspecified; E78.5 Hyperlipidemia, unspecified; K29.70 Gastritis, unspecified, without bleeding; R73.03 Prediabetes; R59.0 Localized enlarged lymph nodes; M25.451 Effusion, right hip; M10.9 Gout, unspecified; R74.01 Elevation of levels of liver transaminase levels; Z80.0 Family history of malignant neoplasm of digestive organs; Z80.3 Family history of malignant neoplasm of breast; Z87.891 Personal history of nicotine dependence; Z88.0 Allergy status to penicillin
CPT/HCPCS: 36415; 71045; 73721; 74177; 76881; 76942; 80048; 80053; 80061; 80076; 80202; 80307; 81001; 82306; 82607; 82728; 82746; 83010; 83036; 83540; 83550; 83605; 83615; 83735; 84100; 84439; 84443; 84480; 85025; 85045; 85610; 85730; 87040; 87086; 93005; 93306; 93971; C1729; G0378; J1956; J2405

== ENCOUNTER 2025-07-13 15:40 | Inpatient (IN) | payer MEDICAID ==
[~2025-07-13] VITALS: Ht 175.3 cm; Wt 68.3 kg
[~2025-07-13 15:40] MED LIST: IBUP-1456 PO; LEVO500T91 PO
--- NOTE | 2025-07-13 16:37 | ED.PDOC ---
Musculoskeletal HPI Comments 35-year-old male presents to the ED with a chief complaint of right knee swelling onset today. Patient states he had his leg adjusted with a chiropractor 3 months ago, since then has been experiencing intermittent pain with swelling, worsened today. Patient had a follow up appointment with physician today, was referred to ED due to tachycardia. Upon ED arrival patient is HR with 140. Patient was seen in this ED on 06/30/25 for RT knee pain, was noted to be tachycardiac was admitted, was discharged on 07/03/25. Patient denies chest pain, shortness of breath, dizziness, headache, nausea, vomiting, diarrhea, blurred vision, numbness/ tingling. No other symptoms or modifying factors present at this time. Chief Complaint: Lower Extremity Time Seen by MD: 16:20 Reviewed Notes: Medications, Allergies Allergies: Coded Allergies: Penicillins (Verified Allergy, Unknown, 06/30/25) Home Meds Active Scripts Ibuprofen (Ibuprofen) 800 Mg Tab, 800 MG PO Q8HP PRN for 5 Days, #15 TAB Prov:JEFFREY GUY RESIDENT 07/03/25 Levofloxacin Hemihydrate (LEVAQUIN 500 MG) 500 Mg Tab, 1 TAB PO DAILY for 14 Days, #14 TAB Prov:JEFFREY GUY RESIDENT 07/03/25 Information Source: Patient Mode of Arrival: Ambulatory Location: Right Extremity Location: Knee Timing: Weeks Prehospital treatment: None Severity: Moderate Able to Move Extremity: Yes Bear Weight: Fully Pain: Moderate Associated signs and symptoms: Swelling Past Medical History PAST MEDICAL HISTORY: Denies Surgical History: Denies all surgeries Social History Smoker: Non-Smoker Alcohol: Denies ETOH Use Drugs: Denies Drug Use Lives In: Home Constitutional: denies: chills, diaphoresis, fatigue, fever, malaise, sweats, weakness, others EENTM: denies: blurred vision, double vision, ear bleeding, ear discharge, ear drainage, ear pain, ear ringing, eye pain, eye redness, hearing loss, mouth pain, mouth swelling, nasal discharge, nose bleeding, nose congestion, nose chantelle n, photophobia, tearing, throat pain, throat swelling, voice changes, others Respiratory: denies: cough, hemoptysis, orthopnea, SOB at rest, shortness of breath, SOB with excertion, stridor, wheezing, others Cardiovascular: denies: chest pain, dizzy spells, diaphoresis, Dyspnea on exertion, edema, irregular heart beat, left arm pain, lightheadedness, palpitations, PND, syncope, others Gastrointestinal: denies: abdomen distended, abdominal pain, blood streaked bowels, constipated, diarrhea, dysphagia, difficulty swallowing, hematemesis, melena, nausea, poor appetite, poor fluid intake, rectal bleeding, rectal pain, vomiting, others Genitourinary: denies: burning, dysuria, flank pain, frequency, hematuria, incontinence, penile discharge, penile sore, pain, testicle pain, testicle swelling, urgency, others Neurological: denies: dizziness, fainting, headache, left sided numbness, left sided weakness, numbness, paresthesia, pre-existing deficit, right sided numbness, right sided weakness, seizure, speech problems, tingling, tremors, weakness, others Musculoskeletal: reports: others (RT knee swelling); denies: back pain, gout, joint pain, joint swelling, muscle pain, muscle stiffness, neck pain Integumetry: denies: bruises, change in color, change in hair/nails, dryness, laceration, lesions, lumps, rash, wounds, others Allergic/Immunocompromised: denies: Difficulty Healing, Frequent Infections, Hives, Itching, others Hematologic/Lymphatic: denies: anemia, blood clots, easy bleeding, easy bruising, swollen glands, others Endocrine: denies: excessive hunger, excessive sweating, excessive thirst, excessive urination, flushing, intolerance to cold, intolerance to heat, unexplained weight gain, unexplained weight loss, others Psychiatric: denies: anxiety, bipolar disorder, depression, hopeless, panic disorder, schizophrenia, sleepless, suicidal, others All Other Systems: Reviewed and Negative Physical Exam General Appearance: No Apparent Distress, Normal HEENT: Normal ENT Inspection, Pharynx Normal, TMs Normal Neck: Full Range of Motion, Non-Tender, Normal, Normal Inspection Respiratory: Chest Non-Tender, Lungs Clear, No Accessory Muscle Use, No Re spiratory Distress, Normal Breath Sounds Cardiovascular: No Edema, No JVD, No Murmur, No Gallop, Tachycardia Breast Exam: Deferred Gastrointestinal: No Organomegaly, Non Tender, No Pulsatile Mass, Normal Bowel Sounds, Soft Genitalia: Deferred Pelvic: Deferred Rectal: Deferred Extremities: No calf tenderness, Normal capillary refill, Normal inspection, Normal range of motion, Non-tender, No pedal edema Musculoskeletal : Apperance: Normal Neurologic: Alert, nonprofit 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 Was a procedure done?: No X-Ray, Labs, Meds, VS Vital Signs Date Time Temp Pulse Resp B/P (MAP) Pulse Ox O2 Delivery O2 Flow Rate FiO2 07/13/25 15:51 128 07/13/25 15:43 98.3 140 16 133/95 97 98.3 Time of 1ST Reevaluation: 16:50 Reevaluation 1ST: Unchanged Patient Education/Counseling: Diagnosis, Treatment, Prognosis Family Education/Counseling: No Family Present Critical Care Note Critical Care Time?: No Stability Stability form required: No Heart Score Heart Score: Heart Score Response (Comments) Value History N/A 0 EKG N/A 0 Age N/A 0 Risk Factors N/A 0 Troponin N/A 0 Total 0 I personally scribed for DEVIN ANDINO MD ([email or web address]) on 07/13/25 at 16:37. Electronically submitted by Michelle Martinez ([email or web address]). I personally scribed for DEVIN ANDINO MD ([email or web address]) on 07/13/25 at 17:01. Electronically submitted by Michelle Martinez ([email or web address]). DEVIN ANDINO MD Jul 13, 2025 16:37
--- NOTE | 2025-07-13 17:03 | ED.PDOC ---
Musculoskeletal HPI Comments 35-year-old male presents to the ED with a chief complaint of right knee swelling onset today. Patient states he had his leg adjusted with a chiropractor 3 months ago, since then has been experiencing intermittent pain with swelling, worsened today. Patient had a follow up appointment with physician today, was referred to ED due to tachycardia. Upon ED arrival patient is HR with 140. Patient was seen in this ED on 06/30/25 for RT knee pain, was noted to be tachycardiac was admitted, was discharged on 07/03/25. Patient denies chest pain, shortness of breath, dizziness, headache, nausea, vomiting, diarrhea, blurred vision, numbness/ tingling. No other symptoms or modifying factors present at this time. Chief Complaint: Lower Extremity Time Seen by MD: 16:20 Reviewed Notes: Medications, Allergies Allergies: Coded Allergies: Penicillins (Verified Allergy, Unknown, 06/30/25) Home Meds Active Scripts Ibuprofen (Ibuprofen) 800 Mg Tab, 800 MG PO Q8HP PRN for 5 Days, #15 TAB Prov:JEFFREY GUY RESIDENT 07/03/25 Levofloxacin Hemihydrate (LEVAQUIN 500 MG) 500 Mg Tab, 1 TAB PO DAILY for 14 Days, #14 TAB Prov:JEFFREY GUY RESIDENT 07/03/25 Information Source: Patient Mode of Arrival: Ambulatory Location: Right Extremity Location: Knee Timing: Weeks Prehospital treatment: None Severity: Moderate Able to Move Extremity: Yes Pain: Moderate Mechanism: Spontaneous Circumstances: Sporting Associated signs and symptoms: Swelling Past Medical History PAST MEDICAL HISTORY: Denies Surgical History: Denies all surgeries Social History Smoker: Non-Smoker Alcohol: Denies ETOH Use Drugs: Denies Drug Use Lives In: Home Constitutional: denies: chills, diaphoresis, fatigue, fever, malaise, sweats, weakness, others EENTM: denies: blurred vision, double vision, ear bleeding, ear discharge, ear drainage, ear pain, ear ringing, eye pain, eye redness, hearing loss, mouth pain, mouth swelling, nasal discharge, nose bleeding, nose congestion, nose pain, photophobia, tearing, throat pain, throat swelling, voice changes, others Respiratory: denies: cough, hemoptysis, orthopnea, SOB at rest, shortness of breath, SOB with excertion, stridor, wheezing, others Cardiovascular: denies: chest pain, dizzy spells, diaphoresis, Dyspnea on exertion, edema, irregular heart beat, left arm pain, lightheadedness, palpitations, PND, syncope, others Gastrointestinal: denies: abdomen distended, abdominal pain, blood streaked bowels, constipated, diarrhea, dysphagia, difficulty swallowing, hematemesis, melena, nausea, poor appetite, poor fluid intake, rectal bleeding, rectal pain, vomiting, others Genitourinary: denies: burning, dysuria, flank pain, frequency, hematuria, incontinence, penile discharge, penile sore, pain, testicle pain, testicle swelling, urgency, others Neurological: denies: dizziness, fainting, headache, left sided numbness, left sided weakness, numbness, paresthesia, pre-existing deficit, right sided numbness, right sided weakness, seizure, speech problems, tingling, tremors, weakness, others Musculoskeletal: reports: others (RT knee swelling); denies: back pain, gout, joint pain, joint swelling, muscle pain, muscle stiffness, neck pain Integumetry: denies: bruises, change in color, change in hair/nails, dryness, laceration, lesions, lumps, rash, wounds, others Allergic/Immunocompromised: denies: Difficulty Healing, Frequent Infections, Hives, Itching, others Hematologic/Lymphatic: denies: anemia, blood clots, easy bleeding, easy bruising, swollen glands, others Endocrine: denies: excessive hunger, excessive sweating, excessive thirst, excessive urination, flushing, intolerance to cold, intolerance to heat, unexplained weight gain, unexplained weight loss, others Psychiatric: denies: anxiety, bipolar disorder, depression, hopeless, panic disorder, schizophrenia, sleepless, suicidal, others All Other Systems: Reviewed and Negative Physical Exam General Appearance: No Apparent Distress, Normal HEENT: Normal ENT Inspection, Pharynx Normal, TMs Normal Neck: Full Range of Motion, Non-Tender, Normal, Normal Inspection Respiratory: Chest Non-Tender, Lungs Clear, No Accessory Muscle Use, No Respiratory Distress, Normal Breath Sounds Cardiovascular: No Edema, No JVD, No Murmur, No Gallop, Tachycardia Breast Exam: Deferred Gastrointestinal: No Organomegaly, Non Tender, No Pulsatile Mass, Normal Bowel Sounds, Soft Genitalia: Deferred Pelvic: Deferred Rectal: Deferred Extremities: No calf tenderness, Normal capillary refill, Normal inspection, Normal range of motion, Non-tender, No pedal edema Musculoskeletal : Apperance: Normal Neurologic: Alert, tumbler machine operator helper II-XII nml as Tested, No Motor Deficits, Normal Affect, Normal Mood, No Sensory Deficits Cerebellar Function: Normal Reflexes: Normal Skin: Dry, Normal Color, Warm Lymphatic: No Adenopathy Was a procedure done? Was a procedure done?: No Differential Diagnosis EXT Differential Diagnosis: Cellulitis, CHF, Deep Vein Thrombosis, Neurovascular injury, Arthritis, Bursitis X-Ray, Labs, Meds, VS Vital Signs Date Time Temp Pulse Resp B/P (MAP) Pulse Ox O2 Delivery O2 Flow Rate FiO2 07/13/25 20:02 99.4 138 20 132/80 (97) 99 99.4 07/13/25 17:52 99.3 135 20 131/90 (104) 97 99.3 07/13/25 15:51 128 07/13/25 15:43 98.3 140 16 133/95 97 98.3 Lab Test 07/13/25 18:24 07/13/25 17:29 Range/Units Troponin I High Sensitivity < 3 L < 3 L </=54 ng/L White Blood Count 9.6 4.4-10.8 10^3/uL Red Blood Count 3.83 L 4.5-5.90 10^6/uL Hemoglobin 8.9 L 13.5-17.5 g/dL Hematocrit 27.7 L 41.0-53.0 % Mean Corpuscular Volume 72.4 L 80.0-100.0 fL Mean Corpuscular Hemoglobin 23.1 L 28.0-32.0 pg Mean Corpuscular Hemoglobin Concent 32.0 32.0-36.0 g/dL Red Cell Distribution Width 20.6 H 11.8-14.3 % Platelet Count 655 H 140-450 10^3/uL Mean Platelet Volume 7.7 6.9-10.8 fL Neutrophils (%) (Auto) 75.5 37.0-80.0 % Lymphocytes (%) (Auto) 11.1 10.0-50.0 % Monocytes (%) (Auto) 12.4 H 0.0-12.0 % Eosinophils (%) (Auto) 0.2 0.0-7.0 % Basophils (%) (Auto) 0.8 0.0-2.0 % Neutrophils # (Auto) 7.3 1.6-8.6 10 ^3/uL Lymphocytes # (Auto) 1.1 0.4-5.4 10 ^3/uL Monocytes # (Auto) 1.2 0-1.3 10 ^3/uL Eosinophils # (Auto) 0 0-0.8 10 ^3/uL Basophils # (Auto) 0.1 0-0.2 10 ^3/uL Nucleated Red Blood Cells 0.1 % Sodium Level 140 136-145 mmol/L Potassium Level 3.7 3.5-5.1 mmol/L Chloride Level 104 98-107 mmol/L Carbon Dioxide Level 26 20-31 mmol/L Anion Gap 10 5-15 Blood Urea Nitrogen 9 9-23 mg/dL Creatinine 0.79 0.700-1.30 mg/dL Glomerular Filtration Rate Calc 120 >90 mL/min BUN/Creatinine Ratio 11.4 10.0-20.0 Serum Glucose 109 H 74-106 mg/dL Calcium Level 9.5 8.7-10.4 mg/dL Current Medications Medications (Trade) Dose Ordered Sig/Merly Route Start Time Stop Time Status Last Admin Sodium Chloride 1,000 ml @ 1,000 mls/hr Q1H ONCE IV 07/13/25 19:15 07/13/25 20:14 DC 07/13/25 20:01 X-Ray, Labs, Meds, VS Comment Patient reports no shortness of breath, no chest pain. Upon review of prior visit, patient's heart rate was initially only up to 103. Today's visit patient's heart rate would not drop below 130. Patient will be admitted for tachycardia, there was concerns this baby received two patient's prior issues with septic joint Patient may benefit from Hematology consult as patient has a elevated platelets and suffers from chronic anemia Time of 1ST Reevaluation: 16:50 Reevaluation 1ST: Unchanged Patient Education/Counseling: Diagnosis, Treatment, Prognosis Family Education/Counseling: No Family Present Departure 1 Departure Time of Disposition: 16:50 Impression: Primary Impression: Septic arthritis Qualified Codes: M00.9 - Pyogenic arthritis, unspecified Additional Impressions: Tachycardia Elevated platelet count Chronic anemia Disposition: ADMITTED INPATIENT Condition: Stable Critical Care Note Critical Care Time?: No Stability Stability form required: No Heart Score Heart Score: Heart Score Response (Comments) Value History N/A 0 EKG N/A 0 Age N/A 0 Risk Factors N/A 0 Troponin N/A 0 Total 0 I personally scribed for TELMA WALLS ([email or web address]) on 07/13/25 at 17:03. Electronically submitted by Michelle Martinez ([email or web address]). TELMA WALLS Jul 13, 2025 17:03
[2025-07-13 17:47] LABS: Chloride 104 mmol/L (98-107); Potassium 3.7 mmol/L (3.5-5.1); Sodium 140 mmol/L (136-145)
[2025-07-13 17:48] LABS: Anion Gap 10 (5-15); Calcium 9.5 mg/dL (8.7-10.4); Carbon Dioxide 26 mmol/L (20-31)
[2025-07-13 17:53] LABS: BUN/Creatinine Ratio 11.4 (10.0-20.0)
[2025-07-13 17:54] LABS: Blood Urea Nitrogen 9 mg/dL (9-23); Glucose 109 mg/dL (74-106)
--- NOTE | 2025-07-13 18:01 | DVH ---
CHEST RADIOGRAPH Indication: tachycardia Technique: Single frontal view of the chest was obtained COMPARISON: XY CHEST XRAY 1 VIEW on DOS: 06/30/25 FINDINGS: Lines and Tubes: None Lungs: Clear Pleura: No effusion. No pneumothorax. Cardiomediastinal contours: Unremarkable Bones: Unremarkable IMPRESSION: No acute disease.
--- NOTE | 2025-07-13 18:29 | ECG ---
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
[2025-07-13 18:33] LABS: Nucleated Red Blood Cells % 0.1 %
[2025-07-13 18:34] LABS: Hematocrit 27.7 % (41.0-53.0); Hemoglobin 8.9 g/dL (13.5-17.5); Mean Corpuscular Hemoglobin 23.1 pg (28.0-32.0); Mean Corpuscular Volume 72.4 fL (80.0-100.0)
[2025-07-13] MEDS: SODIUM CHLORIDE 0.9% 1,000 ML IV ONE (20:01)
[2025-07-13] MEDS: IOHEXOL 350 MG/ML 100ML IJ ONE (20:55)
[2025-07-13 21:01] LABS: INR 1.23 (0.9-1.15); Prothrombin Time 12.8 sec (9.3-11.8)
[2025-07-13] MEDS: SODIUM CHLORIDE 0.9% 1,000 ML IV SCH (21:15)
--- NOTE | 2025-07-13 21:15 | DVH ---
EXAM: CT CT ANGIO CHEST CONTRAST HISTORY: elevated dimer TECHNIQUE: CT angiogram was performed. CT scans at this facility use dose modulation, iterative reconstruction, and/or weight based dosing when appropriate to reduce radiation dose to as low as reasonably achievable. Coronal and sagittal reformations and maximum intensity projection images were created from the transaxial source data by the aeronautical engineering technologist and workstation, as well as 3-D volume rendered images with MIPs. COMPARISON: None FINDINGS: [LOWER NECK]: Unremarkable. [LYMPH NODES/MEDIASTINUM]: No abnormal lymph nodes by CT size criteria. [CARDIOVASCULAR]: Normal cardiac size. No pericardial effusion. No aneurysmal dilatation of the great vessels. No significant coronary artery calcifications. [PULMONARY ARTERIES]: No pulmonary arterial filling defect. Normal caliber of the main pulmonary artery. No evidence of elevated right heart pressures. [UPPER ABDOMEN]: Unremarkable. [MUSCULOSKELETAL]: No acute fracture or aggressive focal osseous lesion. Multilevel degenerative change of the visualized spine. [CHEST WALL]: Unremarkable. [LUNG PARENCHYMA/PLEURAL SPACE]: No consolidation, suspicious focal airspace opacity, or suspicious nodules. No pleural effusion or pneumothorax. IMPRESSION: 1. No CTA evidence of an acute pulmonary embolism.
--- NOTE | 2025-07-13 21:41 | DVHHPRES ---
History of Present Illness Resident Creating Document: NAHOMY VENTURA RESIDENT History of Present Illness This is a 35-year-old male past medical history of right hip pain , osteoarthritis , HLD, Anemia , GERD sent from PCP office to rule out tachycardia. In ER patient heart rate became 140 but denies any SOB, chest pain, headache, cough or any other acute symptoms. Patient was recently discharged from hospital on 07/03/2025 due to right hip septic arthritis and treated with IV antibiotic vancomycin and levofloxacin. Rt hip MRI (07/01/25): Right hip joint effusion with asymmetric severe right hip joint space loss and suspected developing osseous erosion. Primary diagnosis of exclusion is septic arthritis. Alternative differential includes crystalline deposition arthropathy such as pseudogout versus gout. RIGHT KNEE ULTRASOUND ON 06/30/2025: Complex fluid above the right knee. Right knee aspiration by IR on 07/01/2025: Unsuccessful attempt to aspirate fluid in the suprapatellar area on the right. Patient denies any recent history of fall trauma sick contact. Sexually active with one partner denies any penile discharge, dysuria. No fever, chest pain, cough, abdominal pain, headache, any focal weakness noted. Past medical history: Dyslipidemia, microcytic anemia, gastritis. Surgical history: Nothing contributory Family history: breast cancer, stomach cancer - aunt Social history: Lives in [place] with family (next of kin is ). Ex tobacco use and quit a proximally five years ago. Denies EtOH or illicit drug use. Allergies: Penicillin Home medication: Ibuprofen PCP: Dr. Brooks. Review of Systems Constitutional: Yes: Weakness, Malaise; No: Fever, Chills, Sweats, Other Eyes: No: Pain, Vision change, Conjunctivae inflammation, Eyelid inflammation, Other, Redness ENT: No: Ear pain, Ear discharge, Nose pain, Nose discharge, Nose congestion, Mouth pain, Mouth swelling, Throat pain, Throat swelling, Other Respiratory: No: Cough, Dry, Shortness of breath, SOB with excertion, Wheezing, Hemoptysis, Pleuritic Pain, Sputum, Wheezing, Other Cardiovascular: No: Chest Pain, Palpitations, Orthopnea, Paroxysmal Noc. Dyspnea, Edema, Lt Headedness, Other Gastrointestinal: No: Nausea, Vomiting, Abdominal Pain, Diarrhea, Constipation, Melena, Hematochezia, Other Genitourinary: No Dysuria, No Frequency, No Incontinence, No Hematuria, No Retention, No Other Musculoskeletal: other (Right knee pain and swelling); No: neck pain, shoulder pain, arm pain, back pain, hand pain, leg pain, foot pain Skin: No: Rash, Lesions, Jaundice, Bruising, Other Neurological: No: Weakness, Numbness, Incoordination, Change in speech, Confusion, Seizures, Other Allergies: Coded Allergies: Penicillins (Verified Allergy, Unknown, 06/30/25) Medications Current Medications Medications Dose Ordered Sig/Merly Route Start Time Stop Time Status Last Admin Dose Admin Sodium Chloride 1,000 ml @ 120 mls/hr Q8H20M IV 07/13/25 21:15 UNV Enoxaparin Sodium 40 mg DAILY SC 07/14/25 10:00 UNV Acetaminophen 650 mg Q6HP PRN PO 07/13/25 21:15 UNV Ceftriaxone Sodium 50 ml @ 100 mls/hr DAILY@09 IV 07/14/25 09:00 UNV Exam Vital Signs Vital Signs Date Time Temp Pulse Resp B/P (MAP) Pulse Ox O2 Delivery O2 Flow Rate FiO2 07/13/25 20:02 99.4 138 20 132/80 (97) 99 99.4 General Appearance: Alert, Oriented X3, Cooperative, No acute distress, moderate distress HEENT: Atraumatic, PERRLA, EOMI Respiratory: Clear to auscultation, Normal air movement Cardiovascular: Regular rate, Normal S1, Normal S2, No murmurs Abdominal: Normal bowel sounds, Soft, No tenderness, No hepatospenomegaly Extremities: No clubbing, No cyanosis, No edema, Other (Tender on deep palpation and swelling noted right knee) Skin: No rashes, No breakdown Neuro: Strength at 5/5 X4 ext, Sensation intact, Cranial nerves 3-12 NL Psych/Mental Status: Mental status NL, Mood NL Labs/Xrays Labs Test 07/13/25 18:24 07/13/25 17:29 Range/Units Troponin I High Sensitivity < 3 L </=54 ng/L White Blood Count 9.6 4.4-10.8 10^3/uL Red Blood Count 3.83 L 4.5-5.90 10^6/uL Hemoglobin 8.9 L 13.5-17.5 g/dL Hematocrit 27.7 L 41.0-53.0 % Mean Corpuscular Volume 72.4 L 80.0-100.0 fL Mean Corpuscular Hemoglobin 23.1 L 28.0-32.0 pg Mean Corpuscular Hemoglobin Concent 32.0 32.0-36.0 g/dL Red Cell Distribution Width 20.6 H 11.8-14.3 % Platelet Count 655 H 140-450 10^3/uL Mean Platelet Volume 7.7 6.9-10.8 fL Neutrophils (%) (Auto) 75.5 37.0-80.0 % Lymphocytes (%) (Auto) 11.1 10.0-50.0 % Monocytes (%) (Auto) 12.4 H 0.0-12.0 % Eosinophils (%) (Auto) 0.2 0.0-7.0 % Basophils (%) (Auto) 0.8 0.0-2.0 % Neutrophils # (Auto) 7.3 1.6-8.6 10 ^3/uL Lymphocytes # (Auto) 1.1 0.4-5.4 10 ^3/uL Monocytes # (Auto) 1.2 0-1.3 10 ^3/uL Eosinophils # (Auto) 0 0-0.8 10 ^3/uL Basophils # (Auto) 0.1 0-0.2 10 ^3/uL Nucleated Red Blood Cells 0.1 % Prothrombin Time 12.8 H 9.3-11.8 sec Prothrombin Time INR 1.23 H 0.9-1.15 D-Dimer, Quantitative 10.29 H 0.0-0.49 mg/L FEU Sodium Level 140 136-145 mmol/L Potassium Level 3.7 3.5-5.1 mmol/L Chloride Level 104 98-107 mmol/L Carbon Dioxide Level 26 20-31 mmol/L Anion Gap 10 5-15 Blood Urea Nitrogen 9 9-23 mg/dL Creatinine 0.79 0.700-1.30 mg/dL Glomerular Filtration Rate Calc 120 >90 mL/min BUN/Creatinine Ratio 11.4 10.0-20.0 Serum Glucose 109 H 74-106 mg/dL Calcium Level 9.5 8.7-10.4 mg/dL SEPSIS Sepsis Screen Date sepsis recognized/suspect: Jul 13, 2025 Time Sepsis recognized/suspect: 1542 Recent Procedure: No On Antibiotic Therapy: No Respiratory Rate >20: No Heart Rate >90: Yes Temp<36 C (96.8 F) or >38.3 C: No SBP <90 or MAP <65 mmHG: No New Acute Mental Status Change: No Is the patient on CPAP, BIPAP,: No Physician Orders Electrocardigram (07/13/25 16:12) Urinalysis (07/13/25 17:23) Chest Xray 1 View (07/13/25 17:23) Ct Angio Chest Contrast (07/13/25 20:43) Admit (07/13/25 21:09) Code Status (07/13/25 21:09) Sodium Chloride 0.9% (07/13/25 21:15) Enoxaparin Sodium (Lovenox) (07/14/25 10:00) Acetaminophen Tablet (Tylenol Tablet) (07/13/25 21:15) Notify Md Of Changes From Base (07/13/25 21:09) Ceftriaxone 1gm/50ml (Rocephin) (07/14/25 09:00) Ceftriaxone 1gm/50ml (Rocephin) (07/13/25 21:15) Drug Screen (07/13/25 21:09) C-Reactive Protein (07/13/25 21:09) Erythrocyte Sedimentation Rate (07/13/25 21:09) Carol Direct W/Reflex To Comp. (07/13/25 21:09) Rheumatoid Arthritis Factor (07/13/25 21:09) Hiv 1&2 Antibody (07/13/25 21:09) Comprehensive Hepatitis Panel (07/13/25 21:09) Huynh Stain Slide (07/13/25 21:09) Reticulocyte Count (07/13/25 21:09) Right Lower Extremity Ultrasou (07/13/25 21:09) Vital Signs Date Time Temp Pulse Resp B/P (MAP) Pulse Ox O2 Delivery O2 Flow Rate FiO2 07/13/25 20:02 99.4 138 20 132/80 (97) 99 99.4 07/13/25 17:52 99.3 135 20 131/90 (104) 97 99.3 07/13/25 15:51 128 07/13/25 15:43 98.3 140 16 133/95 97 98.3 Laboratory Tests Test 07/13/25 17:29 White Blood Count 9.6 10^3/uL (4.4-10.8) Medications Medications Dose Ordered Sig/Merly Route Start Time Stop Time Status Last Admin Dose Admin Sodium Chloride 1,000 ml @ 1,000 mls/hr Q1H ONCE IV 07/13/25 19:15 07/13/25 20:14 DC 07/13/25 20:01 1,000 MLS/HR Assessment/Plan Assessment/Plan Right knee septic arthritis Right knee pain Questionable gout/pseudogout Patient came with right knee swelling and pain in ER patient received NSS bolus. QFT negative on (07/01/2025) Empiric antibiotic vancomycin and ceftriaxone Pain management IVF CRP-19.97 , ESR-111 CAROL, rheumatoid factors UDS HIV- negative hepatitis panel, Gc/chlamydia Ultrasound right knee: 6.6 x 1.25 x 6.71 cm complex fluid collection superior to the right knee may represent abscess Uric acid level blood culture Follow-up labs Tachycardia likely sepsis Rule out pulmonary embolism PT PTT D-dimer CT angio chest-negative for PE Troponin: <3, repeat troponin<3 CXR: no acute cardiopulmonary disease. UA: Negative ECG: sinus tachycardia, HR 128, QTC 428. Microcytic hypochromic anemia possible ACD hemoglobin 8.9, HCT 27.7, MCV 72.4, RDW 20.6 HAPTOGLOBIN 536 (06/30/2025) IRON-17, TIBC 255, % SATURATION 6.7, FERRITIN 555.5 LDH 176 Follow PBF, reticulocyte count Thrombocytosis likely reactive platelet count 655 CBC Substance abuse disorder UDS- Phentanyl positive Diet: Regular GI prophylaxis: Famotidine DVT prophylaxis: Lovenox Goals of care discussions with. More than 29 minute spent with patient. Full code status. Case discussed with Dr. Kim Plan discussed with: Patient, Other (Nurse) My Orders Orders - NAHOMY VENTURA RESIDENT Procedure Category Date Status Time Admit ADMIT 07/13/25 Transmitted 21:09 Code Status CODE 07/13/25 Transmitted 21:09 Sodium Chloride 0.9% PHA 07/13/25 Logged 21:15 Enoxaparin Sodium PHA 07/14/25 Logged (Lovenox) 10:00 Acetaminophen Tablet PHA 07/13/25 Logged (Tylenol Tablet) 21:15 Notify Of Changes BHUPINDER 07/13/25 In Process From Base 21:09 Ceftriaxone 1gm/50ml PHA 07/14/25 Logged (Rocephin) 09:00 Ceftriaxone 1gm/50ml PHA 07/13/25 Logged (Rocephin) 21:15 Drug Screen LAB 07/13/25 Logged 21:09 C-Reactive Protein LAB 07/13/25 In Process 21:09 Erythrocyte LAB 07/13/25 In Process Sedimentation Rate 21:09 Carol Direct W/Reflex LAB 07/13/25 Logged To Comp. 21:09 Rheumatoid Arthritis LAB 07/13/25 Logged Factor 21:09 Hiv 1&2 Antibody LAB 07/13/25 Logged 21:09 Comprehensive LAB 07/13/25 In Process Hepatitis Panel 21:09 Huynh Stain Slide LAB 07/13/25 In Process 21:09 Reticulocyte Count LAB 07/13/25 In Process 21:09 Right Lower Extremity US 07/13/25 Logged Ultrasou 21:09 Visit Coding STANDARD RES Billing Provider: MARLON KIM MD Date of Service if different f: Jul 13, 2025 Common Visit Codes: [id number] INP/OBS CARE (HIGH) Secondary Visit Codes: [id number] CARE PLAN 30 MINUTES NAHOMY VENTURA RESIDENT Jul 13, 2025 21:41 ALIS JAIMES RESIDENT Jul 14, 2025 03:16
[2025-07-13 21:51] LABS: Wright Stain Ready for Review
--- NOTE | 2025-07-13 22:07 | DVH ---
Exam: US RIGHT LOWER EXTREMITY ULTRASOU Date: 07/13/2025 09:50 PM Clinical History: Right knee ultrasound rule out redness swelling. Comparison: US RIGHT LOWER EXTREMITY ULTRASOU on DOS: 06/30/25 Technique: Targeted sonographic evaluation of the soft tissues of the soft tissue swelling superior to the right knee was obtained utilizing grayscale and color Doppler imaging. Findings: There is a 6.6 x 1.25 x 6.71 cm complex fluid collection superior to the right knee may represent abscess. IMPRESSION: 1. 6.6 x 1.25 x 6.71 cm complex fluid collection superior to the right knee may represent abscess.
[2025-07-13 22:20] LABS: Urine Protein, UAD TRACE (Negative)
[2025-07-13 22:28] LABS: Cannabinoid Screen, Urine Neg (NEGATIVE); Opiate Scree,Urine Neg (NEGATIVE); Phencyclidine Screen, Urine Neg (NEGATIVE)
[2025-07-13 22:33] VITALS: PULSE 135; RESP 15; O2SAT 99
[2025-07-13 22:42] LABS: Amphetamine Screen, Urine Neg (NEGATIVE); Barbiturate Scree,Urine Neg (NEGATIVE); Benzodiazephine Screen, Urine Neg (NEGATIVE); Cocaine Screen, Urine Neg (NEGATIVE)
[2025-07-13] MEDS: DOXYCYCLINE 100 MG TAB/CAP PO ONE (23:11)
[2025-07-13] MEDS: levoFLOXacin 500 MG TAB PO ONE (23:11)
[2025-07-14 02:32] LABS: Hematocrit 26.4 % (41.0-53.0); Hemoglobin 8.2 g/dL (13.5-17.5); Mean Corpuscular Hemoglobin 22.7 pg (28.0-32.0); Mean Corpuscular Volume 72.6 fL (80.0-100.0); Nucleated Red Blood Cells % 0.0 %
[2025-07-14 02:51] LABS: Alanine Aminotransferase 36 U/L (7-40); Albumin 4.1 g/dL (3.2-4.8); Anion Gap 11 (5-15); BUN/Creatinine Ratio 8.1 (10.0-20.0); Calcium 9.6 mg/dL (8.7-10.4); Carbon Dioxide 26 mmol/L (20-31); Chloride 103 mmol/L (98-107); Potassium 3.9 mmol/L (3.5-5.1); Sodium 140 mmol/L (136-145); Uric Acid 4.3 mg/dL (3.7-9.2)
[2025-07-14 02:52] LABS: Bilirubin, Total 0.4 mg/dL (0.2-1.0)
[2025-07-14 03:13] LABS: Alkaline Phosphatase 199 U/L (46-116); Blood Urea Nitrogen 6 mg/dL (9-23); Glucose 127 mg/dL (74-106); Total Protein 9.3 g/dL (5.7-8.2)
[2025-07-14] MEDS ORDERED: VANCOMYCIN PER PHARMACY 0 MG IV SCH (03:15)
[2025-07-14] MEDS: VANCOMYCIN 1GM/250ML IV ONE (03:49)
[2025-07-14] MEDS: ENOXAPARIN SOD 40 MG/0.4 ML SYRINGE SC SCH (08:02)
[2025-07-14] MEDS: FAMOTIDINE 20 MG TAB PO SCH (08:03)
[2025-07-14] MEDS: DOXYCYCLINE 100 MG TAB/CAP PO SCH (08:03)
--- NOTE | 2025-07-14 08:05 | DVH ---
CLINICAL HISTORY: Rule out DVT. COMPARISON: No prior upper extremity venous duplex exam. TECHNIQUE: Compression evaluation and color Doppler evaluation of the deep veins of the bilateral upper extremities was performed. Color flow and spectral waveform analysis was performed. FINDINGS: This examination demonstrates normal compression and phasic flow of the deep veins of the bilateral upper extremities with no evidence for thrombus within the internal jugular, subclavian, axillary, brachial, radial, and ulnar veins. The left basilic vein and cephalic veins demonstrated normal compression and color flow. There is thrombus in the right cephalic vein with no flow demonstrated at the level of the thrombus. The right basilic vein is patent with normal spontaneous phasic flow and compressibility. IMPRESSION: 1. There is no evidence for DVT in either upper extremity. 2. Superficial thrombus in the right cephalic vein.
[2025-07-14 09:09] VITALS: PULSE 122; RESP 17; O2SAT 99
[2025-07-14] MEDS ORDERED: levoFLOXacin 500 MG TAB PO SCH (10:00)
[2025-07-14 10:49] VITALS: BP 134/86; PULSE 139; RESP 16; RESP 22; TEMP 97.7; O2SAT 100
[2025-07-14 11:52] LABS: Hepatitis A Total Antibody Positive (Negative)
[2025-07-14 11:53] LABS: Hepatitis B Surface Antigen Negative (Negative); Hepatitis C Antibody Negative (Negative)
[2025-07-14] MEDS: VANCOMYCIN 1GM/250ML KIT 250 ML IV SCH (12:07)
[2025-07-14 12:31] VITALS: BP 134/86; PULSE 139; RESP 22; TEMP 97.7; O2SAT 100
--- NOTE | 2025-07-14 14:20 | DVH ---
CLINICAL HISTORY: Right knee abscess COMPARISON: Ultrasound dated 07/13/2025. TECHNIQUE: Multisequence multiplanar MRI images of the right knee were obtained without contrast. FINDINGS: Cruciate ligaments: ACL and PCL are intact. Extensor mechanism: Quadriceps mechanism and patellar tendon are intact. Moderate edema in Hoffa's fat pad. Mild edema and small amount of fluid in the prepatellar and superficial infrapatellar bursae. Collateral ligaments: There is mild edema and small amount of fluid along the superficial fibers of the MCL, may be seen with grade 1 sprain in the appropriate clinical setting. Mild edema adjacent to the proximal fibers of the lateral collateral ligament, possible sprain with nonspecific inflammation. Menisci: There is mild intrasubstance degeneration in the posterior horn of the medial meniscus without evidence of tear. Lateral meniscus is intact. Cartilage: No focal chondral defect or significant chondromalacia. Bones: No acute fracture or focal marrow contusion. Joint fluid: Large amount of complex fluid throughout the joint, most prominent in the suprapatellar recess. Other: Small popliteal cyst. IMPRESSION: 1. Large amount of complex fluid in the joint, likely correlating with the complex fluid collection seen on ultrasound. Septic arthritis not excluded in the appropriate clinical setting. Correlate with clinical findings. If there is clinical suspicion for septic arthritis, joint aspiration would be recommended. Other etiologies, such as inflammatory arthropathy or hemarthrosis could also have a similar appearance. Correlate with clinical findings. 2. Edema along the courses of the medial and lateral collateral ligaments, may be sequelae of sprains or nonspecific inflammation. 3. Small popliteal cyst. 4. Additional findings as detailed above.
[2025-07-14 15:59] VITALS: BP 133/95; PULSE 115; RESP 18; TEMP 98.6; O2SAT 100
--- NOTE | 2025-07-14 17:03 | DVHPNRES ---
Progress Note Date Seen: Jul 14, 2025 Resident Creating Document: MARTHA ANNE RESDIENT Medical Necessity Reason Pt with a Central, PICC or Fol: No Subjective Review of Systems This is a 35-year-old male past medical history of right hip pain , osteoarthritis , HLD, Anemia , GERD sent from PCP office to rule out tachycardia. In ER patient heart rate became 140 but denies any SOB, chest pain, headache, cough or any other acute symptoms. Patient was recently discharged from hospital on 07/03/2025 due to right hip septic arthritis and treated with IV antibiotic vancomycin and levofloxacin. Rt hip MRI (07/01/25): Right hip joint effusion with asymmetric severe right hip joint space loss and suspected developing osseous erosion. Primary diagnosis of exclusion is septic arthritis. Alternative differential includes crystalline deposition arthropathy such as pseudogout versus gout. RIGHT KNEE ULTRASOUND ON 06/30/2025: Complex fluid above the right knee. Right knee aspiration by IR on 07/01/2025: Unsuccessful attempt to aspirate fluid in the suprapatellar area on the right. Patient denies any recent history of fall trauma sick contact. Sexually active with one partner denies any penile discharge, dysuria. No fever, chest pain, cough, abdominal pain, headache, any focal weakness noted. Past medical history: Dyslipidemia, microcytic anemia, gastritis. Surgical history: Nothing contributory Family history: breast cancer, stomach cancer - aunt Social history: Lives in [place] with family (next of kin is ). Ex tobacco use and quit a proximally five years ago. Denies EtOH or illicit drug use. Allergies: Penicillin Home medication: Ibuprofen PCP: Dr. Brooks. On 07/14, the patient was seen and examined at the bedside. Patient is feeling better since admission but still complaining of right knee pain. Objective vital signs Vital Sign Date Time Temp Pulse Resp B/P (MAP) Pulse Ox O2 Delivery O2 Flow Rate FiO2 07/14/25 12:31 97.7 139 22 134/86 (102) 100 97.7 07/14/25 10:49 Room Air* 0 21 medications Current Medications Medications Dose Ordered Sig/Merly Route Start Time Stop Time Status Last Admin Dose Admin Sodium Chloride 1,000 ml @ 120 mls/hr Q8H20M IV 07/13/25 21:15 07/14/25 15:34 120 MLS/HR Enoxaparin Sodium 40 mg DAILY SC 07/14/25 10:00 07/14/25 08:02 40 MG Acetaminophen 650 mg Q6HP PRN PO 07/13/25 21:15 Doxycycline Monohydrate 100 mg Q12HR PO 07/14/25 10:00 07/14/25 08:03 100 MG Famotidine 20 mg Q12HR PO 07/14/25 10:00 07/14/25 08:03 20 MG Vancomycin HCl 0 ml @ 0 mls/hr PER PHARMACY IV 07/14/25 03:15 Ceftriaxone Sodium 50 ml @ 100 mls/hr DAILY@09 IV 07/14/25 09:00 07/14/25 08:02 100 MLS/HR Vancomycin HCl 250 ml @ 250 mls/hr Q8H IV 07/14/25 12:00 07/14/25 12:07 250 MLS/HR Examination General Appearance: Alert, Oriented X3, Cooperative, No acute distress HEENT: Atraumatic, PERRLA, EOMI, Mucous membrane moist/pink Respiratory: Clear to auscultation, Normal air movement Cardiovascular: Regular rate, Normal S1, Normal S2, No murmurs, no chest wall tenderness Abdominal: Normal bowel sounds, Soft, No tenderness, No hepatospenomegaly, No masses Extremities: Right knee is swollen, tender, warm and mildly red. Skin: No rashes, No breakdown, No significant lesion Neuro: Normal gait, Normal speech, Strength at 5/5 X4 ext, Normal tone, Sensation intact, Cranial nerves 3-12 NL, Reflexes 2+ Psych/Mental Status: Mental status NL, Mood NL laboratory and microbiology Laboratory Tests 07/14/25 02:07 Test 07/14/25 02:07 Range/Units Serum Glucose 127 H 74-106 mg/dL Labs and/or images reviewed: Labs reviewed by me, Image(s) reviewed by me Problem List/Assessment/Plan Problem List/Assessment/Plan Right knee septic arthritis Questionable gout/pseudogout Sepsis, due to above Tachycardia likely sepsis Rule out pulmonary embolism Microcytic hypochromic anemia possible ACD Thrombocytosis likely reactive Substance abuse disorder * MRI shows, Large amount of complex fluid in the joint, likely correlating with the complex fluid collection seen on ultrasound. Plan/recommendation: * Empiric antibiotic vancomycin, doxycycline and Rocephin * Blood culture * Consulted IR for drainage * Consulted Orthopedic DIET: NPO midnight DVT PROPHYLAXIS: CODE STATUS: Goal of care discussed for more than 18 minutes, full code DISPOSITION: Med/surge Patient's status and plan discussed with the patient. Case discussed with Dr. Holland. Plan discussed with: Patient, Other (RN) My Orders My Orders Orders - MARTHA ANNE RESDIENT Procedure Category Date Status Time Rt Knee With Out Con MRI 07/14/25 Resulted 10:59 * Orthopedic Consult CONS 07/14/25 Transmitted 10:59 Visit Coding STANDARD RES Billing Provider: MATTHEW TORRES MD Date of Service if different f: Jul 14, 2025 Common Visit Codes: [id number] INP/OBS CARE(HIGH) MARTHA ANNE RESDIENT Jul 14, 2025 17:03
--- NOTE | 2025-07-14 20:54 | DVHINCON2 ---
Consult Note Consult Consult Note Reason for Consult: Right knee swelling, atraumatic r/o Septic Arthritis HISTORY OF PRESENT ILLNESS Luis Chino was evaluated today as an inpatient for atraumatic right knee swelling. The patient reports a similar episode two months ago that resolved spontaneously over 23 weeks. Swelling recurred recently. He denies trauma, falls, injections, prior knee surgeries, drug use, diabetes, or gout. Pain today is mild and anterior. PHYSICAL EXAMINATION Right Knee: Anterior swelling present Mild warmth; no erythema ROM 0120, mild discomfort No gross instability Neurovascularly intact IMAGING MRI Right Knee Reviewed Today Joint effusion present No MCL, LCL, ACL, PCL injury Menisci intact No bone bruise, fracture, or marrow abnormality No significant chondral defect Findings most consistent with prepatellar bursitis / reactive bursitis PROCEDURE Right Knee Aspiration, Oral consent Approximately 10 mL of synovial fluid aspirated with sterile technique. Clear fluid Sent for gram stain, culture, and synovial fluid cell count. Patient tolerated the procedure well. ASSESSMENT Atraumatic right knee swelling with MRI findings most consistent with prepatellar bursitis, likely non-infectious. Awaiting synovial studies for confirmation. No ligamentous, meniscal, or osseous injuries identified. PLAN 1. Right knee aspiration performed; await gram stain, culture, and cell count results (expected tomorrow). 2. MRI reviewed no internal derangement; presence of fluid consistent with bursitis. 3. Compression wrap applied for swelling control. 4. Ice, elevation, and activity modification. 5. Pain control per primary team. 6. Weight-bearing as tolerated. 7. Orthopedics to follow up on fluid results and reassess. 8. Return precautions: increasing erythema, fever, severe pain, or inability to bear weigh Plan discussed with: Patient, Other (bedside nurse) Visit Coding Surgery Date of Service if different f: Jul 14, 2025 Billing Provider: MARIA ESTHER SMUMERS Surgery Visit Codes: 74117 - INP CONSULT <55 MIN MARIA ESTHER SUMMERS Jul 14, 2025 20:54
[2025-07-14 21:00] VITALS: BP 133/95; PULSE 112; RESP 14; TEMP 99.3; O2SAT 99
[2025-07-15 01:00] VITALS: BP 123/90; PULSE 113; RESP 14; TEMP 97.9; O2SAT 100
[2025-07-15 05:00] VITALS: BP 126/89; PULSE 113; RESP 16; TEMP 97.9; O2SAT 99
[2025-07-15 06:44] LABS: Hemoglobin 8.9 g/dL (13.5-17.5)
[2025-07-15 06:47] LABS: Hematocrit 27.4 % (41.0-53.0); Mean Corpuscular Hemoglobin 23.2 pg (28.0-32.0); Mean Corpuscular Volume 72.0 fL (80.0-100.0); Nucleated Red Blood Cells % 0.1 %
[2025-07-15 06:57] LABS: Albumin 3.8 g/dL (3.2-4.8); Anion Gap 11 (5-15); Bilirubin, Total 0.4 mg/dL (0.2-1.0); Calcium 9.8 mg/dL (8.7-10.4); Carbon Dioxide 29 mmol/L (20-31); Chloride 99 mmol/L (98-107); Creatine Kinase IFCC 46 U/L (46-171); Potassium 3.6 mmol/L (3.5-5.1); Sodium 139 mmol/L (136-145)
[2025-07-15 06:58] LABS: Alanine Aminotransferase 55 U/L (7-40); Alkaline Phosphatase 203 U/L (46-116); BUN/Creatinine Ratio 6.3 (10.0-20.0); Blood Urea Nitrogen < 5 mg/dL (9-23); Glucose 124 mg/dL (74-106); Total Protein 8.8 g/dL (5.7-8.2)
[2025-07-15 09:00] VITALS: BP 121/78; PULSE 101; RESP 19; TEMP 98.5; O2SAT 98
[2025-07-15 11:07] LABS: Anti-Nuclear Antibody Direct Negative (Negative)
[2025-07-15 13:00] VITALS: BP 125/94; PULSE 125; RESP 20; TEMP 99.9; O2SAT 100
[2025-07-15] MEDS: VANCOMYCIN 1GM/250ML KIT 250 ML IV SCH (14:08)
--- NOTE | 2025-07-15 16:20 | DVHPNRES ---
Progress Note Date Seen: Jul 15, 2025 Resident Creating Document: MARTHA ANNE RESDIENT Medical Necessity Reason Pt with a Central, PICC or Fol: No Subjective Review of Systems This is a 35-year-old male past medical history of right hip pain , osteoarthritis , HLD, Anemia , GERD sent from PCP office to rule out tachycardia. In ER patient heart rate became 140 but denies any SOB, chest pain, headache, cough or any other acute symptoms. Patient was recently discharged from hospital on 07/03/2025 due to right hip septic arthritis and treated with IV antibiotic vancomycin and levofloxacin. Rt hip MRI (07/01/25): Right hip joint effusion with asymmetric severe right hip joint space loss and suspected developing osseous erosion. Primary diagnosis of exclusion is septic arthritis. Alternative differential includes crystalline deposition arthropathy such as pseudogout versus gout. RIGHT KNEE ULTRASOUND ON 06/30/2025: Complex fluid above the right knee. Right knee aspiration by IR on 07/01/2025: Unsuccessful attempt to aspirate fluid in the suprapatellar area on the right. Patient denies any recent history of fall trauma sick contact. Sexually active with one partner denies any penile discharge, dysuria. No fever, chest pain, cough, abdominal pain, headache, any focal weakness noted. Past medical history: Dyslipidemia, microcytic anemia, gastritis. Surgical history: Nothing contributory Family history: breast cancer, stomach cancer - aunt Social history: Lives in [place] with family (next of kin is ). Ex tobacco use and quit a proximally five years ago. Denies EtOH or illicit drug use. Allergies: Penicillin Home medication: Ibuprofen PCP: Dr. Brooks. On 07/14, the patient was seen and examined at the bedside. Patient is feeling better since admission but still complaining of right knee pain. On 07/15, patient is seen and examined at the bedside, pain has improved, joint aspiration has been performed, waiting results. Objective vital signs Vital Sign Date Time Temp Pulse Resp B/P (MAP) Pulse Ox O2 Delivery O2 Flow Rate FiO2 07/15/25 08:00 Room Air* 0 21 07/15/25 05:00 97.9 113 16 126/89 (101) 99 97.9 Total Intake and Output 07/14/25 07/14/25 07/15/25 15:00 23:00 07:00 Intake Total 50 ml 550 ml 1450 ml Output Total 1450 ml Balance 50 ml 550 ml 0 ml medications Current Medications Medications Dose Ordered Sig/Merly Route Start Time Stop Time Status Last Admin Dose Admin Sodium Chloride 1,000 ml @ 120 mls/hr Q8H20M IV 07/13/25 21:15 07/15/25 14:58 120 MLS/HR Enoxaparin Sodium 40 mg DAILY SC 07/14/25 10:00 07/15/25 09:51 40 MG Acetaminophen 650 mg Q6HP PRN PO 07/13/25 21:15 Doxycycline Monohydrate 100 mg Q12HR PO 07/14/25 10:00 07/15/25 09:51 100 MG Famotidine 20 mg Q12HR PO 07/14/25 10:00 07/15/25 09:51 20 MG Vancomycin HCl 0 ml @ 0 mls/hr PER PHARMACY IV 07/14/25 03:15 Ceftriaxone Sodium 50 ml @ 100 mls/hr DAILY@09 IV 07/14/25 09:00 07/15/25 08:57 100 MLS/HR Vancomycin HCl 250 ml @ 250 mls/hr Q10H IV 07/15/25 14:00 07/15/25 14:08 250 MLS/HR Examination General Appearance: Alert, Oriented X3, Cooperative, No acute distress HEENT: Atraumatic, PERRLA, EOMI, Mucous membrane moist/pink Respiratory: Clear to auscultation, Normal air movement Cardiovascular: Regular rate, Normal S1, Normal S2, No murmurs, no chest wall tenderness Abdominal: Normal bowel sounds, Soft, No tenderness, No hepatospenomegaly, No masses Extremities: Right knee is swollen, tender, warm and mildly red. Skin: No rashes, No breakdown, No significant lesion Neuro: Normal gait, Normal speech, Strength at 5/5 X4 ext, Normal tone, Sensation intact, Cranial nerves 3-12 NL, Reflexes 2+ Psych/Mental Status: Mental status NL, Mood NL laboratory and microbiology Laboratory Tests 07/15/25 05:41 Test 07/15/25 05:41 Range/Units Serum Glucose 124 H 74-106 mg/dL Microbiology Date/Time Source Procedure Growth Status 07/14/25 19:53 Knee Anaerobic Culture - Preliminary No growth Resulted 07/13/25 23:20 Blood Blood Culture - Preliminary NO GROWTH AFTER 24 HOURS OF INCUBATION. Resulted Labs and/or images reviewed: Labs reviewed by me, Image(s) reviewed by me Problem List/Assessment/Plan Problem List/Assessment/Plan Right knee septic arthritis Questionable gout/pseudogout Sepsis, due to above Tachycardia likely sepsis Rule out pulmonary embolism Microcytic hypochromic anemia possible ACD Thrombocytosis likely reactive Substance abuse disorder * MRI shows, Large amount of complex fluid in the joint, likely correlating with the complex fluid collection seen on ultrasound. Plan/recommendation: * Empiric antibiotic vancomycin, doxycycline and Rocephin * Blood culture * Consulted IR for drainage * Consulted Orthopedic DIET: NPO midnight DVT PROPHYLAXIS: CODE STATUS: Goal of care discussed for more than 18 minutes, full code DISPOSITION: Med/surge Patient's status and plan discussed with the patient. Case discussed with Dr. Holland. Plan discussed with: Patient, Other (RN) My Orders My Orders Orders - MARTHA ANNE RESDIENT Procedure Category Date Status Time Wound Culture W/ Gs NEDAR 07/14/25 In Process 17:27 Visit Coding STANDARD RES Billing Provider: MATTHEW TORRES MD Date of Service if different f: Jul 15, 2025 Common Visit Codes: [id number] INP/OBS CARE(HIGH) MARTHA ANNE RESDIENT Jul 15, 2025 16:20
[2025-07-15 17:00] VITALS: BP 137/90; PULSE 117; RESP 18; TEMP 99.5; O2SAT 99
[2025-07-15 21:00] VITALS: BP 131/90; PULSE 105; RESP 19; TEMP 98.3; O2SAT 99
[2025-07-16 01:00] VITALS: BP 130/87; PULSE 115; RESP 19; TEMP 98.2; O2SAT 99
[2025-07-16 02:07] LABS: Chlamydia Trachomatis, NAA Negative (Negative); Neisseria gonorrhoeae, NAA Negative (Negative)
[2025-07-16 05:00] VITALS: BP 126/92; PULSE 104; RESP 19; TEMP 98.3; O2SAT 99
[2025-07-16 06:40] LABS: Hematocrit 29.3 % (41.0-53.0); Hemoglobin 9.5 g/dL (13.5-17.5); Mean Corpuscular Hemoglobin 23.2 pg (28.0-32.0); Mean Corpuscular Volume 71.7 fL (80.0-100.0); Nucleated Red Blood Cells % 0.1 %
[2025-07-16 09:00] VITALS: BP 136/91; PULSE 114; RESP 18; TEMP 99.2; O2SAT 99
[2025-07-16 13:00] VITALS: BP 120/83; PULSE 112; RESP 18; TEMP 99.7; O2SAT 99
--- NOTE | 2025-07-16 15:12 | DVHPNRES ---
Progress Note Date Seen: Jul 16, 2025 Resident Creating Document: MARTHA ANNE RESDIENT Medical Necessity Reason Pt with a Central, PICC or Fol: No Subjective Review of Systems This is a 35-year-old male past medical history of right hip pain , osteoarthritis , HLD, Anemia , GERD sent from PCP office to rule out tachycardia. In ER patient heart rate became 140 but denies any SOB, chest pain, headache, cough or any other acute symptoms. Patient was recently discharged from hospital on 07/03/2025 due to right hip septic arthritis and treated with IV antibiotic vancomycin and levofloxacin. Rt hip MRI (07/01/25): Right hip joint effusion with asymmetric severe right hip joint space loss and suspected developing osseous erosion. Primary diagnosis of exclusion is septic arthritis. Alternative differential includes crystalline deposition arthropathy such as pseudogout versus gout. RIGHT KNEE ULTRASOUND ON 06/30/2025: Complex fluid above the right knee. Right knee aspiration by IR on 07/01/2025: Unsuccessful attempt to aspirate fluid in the suprapatellar area on the right. Patient denies any recent history of fall trauma sick contact. Sexually active with one partner denies any penile discharge, dysuria. No fever, chest pain, cough, abdominal pain, headache, any focal weakness noted. Past medical history: Dyslipidemia, microcytic anemia, gastritis. Surgical history: Nothing contributory Family history: breast cancer, stomach cancer - aunt Social history: Lives in [place] with family (next of kin is ). Ex tobacco use and quit a proximally five years ago. Denies EtOH or illicit drug use. Allergies: Penicillin Home medication: Ibuprofen PCP: Dr. Brooks. On 07/14, the patient was seen and examined at the bedside. Patient is feeling better since admission but still complaining of right knee pain. On 07/15, patient is seen and examined at the bedside, pain has improved, joint aspiration has been performed, waiting results. On 07/16, the patient seen and examined at the bedside patient is feeling better and does not have any complaint. Orthopedic is planning for joint irrigation on 07/17. Objective vital signs Vital Sign Date Time Temp Pulse Resp B/P (MAP) Pulse Ox O2 Delivery O2 Flow Rate FiO2 07/16/25 08:27 Room Air* 0 21 07/16/25 05:00 98.3 104 19 126/92 (103) 99 98.3 Total Intake and Output 07/15/25 07/15/25 07/16/25 15:00 23:00 07:00 Intake Total 1225 ml 1050 ml Output Total 1475 ml Balance -250 ml 1050 ml medications Current Medications Medications Dose Ordered Sig/Merly Route Start Time Stop Time Status Last Admin Dose Admin Sodium Chloride 1,000 ml @ 120 mls/hr Q8H20M IV 07/13/25 21:15 07/16/25 07:00 120 MLS/HR Enoxaparin Sodium 40 mg DAILY SC 07/14/25 10:00 07/16/25 10:14 40 MG Acetaminophen 650 mg Q6HP PRN PO 07/13/25 21:15 Doxycycline Monohydrate 100 mg Q12HR PO 07/14/25 10:00 07/16/25 10:13 100 MG Famotidine 20 mg Q12HR PO 07/14/25 10:00 07/16/25 10:13 20 MG Vancomycin HCl 0 ml @ 0 mls/hr PER PHARMACY IV 07/14/25 03:15 Ceftriaxone Sodium 50 ml @ 100 mls/hr DAILY@09 IV 07/14/25 09:00 07/16/25 08:38 100 MLS/HR Vancomycin HCl 250 ml @ 250 mls/hr Q10H IV 07/15/25 14:00 07/16/25 10:14 250 MLS/HR Examination General Appearance: Alert, Oriented X3, Cooperative, No acute distress HEENT: Atraumatic, PERRLA, EOMI, Mucous membrane moist/pink Respiratory: Clear to auscultation, Normal air movement Cardiovascular: Regular rate, Normal S1, Normal S2, No murmurs, no chest wall tenderness Abdominal: Normal bowel sounds, Soft, No tenderness, No hepatospenomegaly, No masses Extremities: Right knee is swollen, tender, warm and mildly red. Skin: No rashes, No breakdown, No significant lesion Neuro: Normal gait, Normal speech, Strength at 5/5 X4 ext, Normal tone, Sensation intact, Cranial nerves 3-12 NL, Reflexes 2+ Psych/Mental Status: Mental status NL, Mood NL laboratory and microbiology Laboratory Tests 07/16/25 06:07 07/15/25 05:41 Test 07/15/25 05:41 Range/Units Serum Glucose 124 H 74-106 mg/dL Microbiology Date/Time Source Procedure Growth Status 07/14/25 19:53 Knee Anaerobic Culture - Preliminary No growth Resulted 07/13/25 23:20 Blood Blood Culture - Preliminary NO GROWTH AFTER 48 HOURS OF INCUBATION. Resulted Labs and/or images reviewed: Labs reviewed by me, Image(s) reviewed by me Problem List/Assessment/Plan Problem List/Assessment/Plan Right knee septic arthritis Questionable gout/pseudogout Sepsis, due to above Tachycardia likely sepsis Rule out pulmonary embolism Microcytic hypochromic anemia possible ACD Thrombocytosis likely reactive Substance abuse disorder * MRI shows, Large amount of complex fluid in the joint, likely correlating with the complex fluid collection seen on ultrasound. Plan/recommendation: * Empiric antibiotic vancomycin, doxycycline and Rocephin * Blood culture * Consulted IR for drainage * Consulted Orthopedic DIET: NPO midnight DVT PROPHYLAXIS: CODE STATUS: Goal of care discussed for more than 18 minutes, full code DISPOSITION: Med/surge Patient's status and plan discussed with the patient. Case discussed with Dr. Kay. Plan discussed with: Patient, Other (RN) My Orders My Orders Orders - MARTHA ANNE RESDIENT Procedure Category Date Status Time Schedule For [facility] 07/16/25 In Process Clinic F/U 13:17 Visit Coding STANDARD RES Billing Provider: PATT KAY DO Date of Service if different f: Jul 16, 2025 Common Visit Codes: [id number] INP/OBS CARE(HIGH) MARTHA ANNE RESDIENT Jul 16, 2025 15:12 PATT KAY DO Jul 17, 2025 00:13
[2025-07-16 17:00] VITALS: BP 118/90; PULSE 129; RESP 18; TEMP 99.2; O2SAT 97
[2025-07-16 21:00] VITALS: BP 130/87; PULSE 124; RESP 18; TEMP 99.4; O2SAT 98
[2025-07-16] MEDS: ACETAMINOPHEN 325 MG TAB PO PRN (21:07)
[2025-07-17 01:00] VITALS: BP 133/87; PULSE 102; RESP 18; TEMP 99.2; O2SAT 97
[2025-07-17 05:00] VITALS: BP 133/97; PULSE 127; RESP 18; TEMP 99.8; O2SAT 98
[2025-07-17 07:59] LABS: Hematocrit 29.6 % (41.0-53.0); Hemoglobin 9.1 g/dL (13.5-17.5); Mean Corpuscular Hemoglobin 22.3 pg (28.0-32.0); Mean Corpuscular Volume 72.1 fL (80.0-100.0); Nucleated Red Blood Cells % 0.0 %
--- NOTE | 2025-07-17 08:11 | DVHHP2 ---
History Allergies: Coded Allergies: Penicillins (Verified Allergy, Unknown, 06/30/25) Chief Complaint: 35M, ortho consulted for right knee pain / swelling x 2-3 days Present Illness(Onset/Duration 35M, admitted to [facility] on 06/30/25 for right hip pain. Dx work up , MRI right hip, CT abd showed OA right hip with mild effusion and lymphadenopathy right inguinal nodes. Ortho was consulted, opined no indication for aspiration, pt dc home. DVT w/u neg, sputum cx neg. 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 Pt developed right knee pain,swelling over past few days. No history of trauma, no F,C ,N, V. Ortho consulted and ELIU Miller performed an aspiration of the right knee, 100 clear viscous fluid obtained, Cx neg Pt has been on Vanco since admission 07/13/25. States no current pain in right knee, pain resolved after aspiration. non contrib Past Surgical History non contrib Medications see int med H and P Physical Exam Skin intact no erythema of right knee Heart mod tachy, ortherwise nl neg MRG Abdomen NBS, ND NT Extremities Right knee no swelling, no warmth, no pain with ROM, no erythema NVI Vital Signs Vital Signs Date Time Temp Pulse Resp B/P (MAP) Pulse Ox O2 Delivery O2 Flow Rate FiO2 07/17/25 05:00 99.8 127 18 133/97 (109) 98 99.8 07/16/25 20:00 Room Air* 0 21 Impressions/Description 35M, with anemia, high platelets, autoimmune condition of unclear dx, aseptic effusion of right knee Plan I see no indicationfor surgical lavage at this time 1) neg knee aspiration 2) clinically normal knee I recommend 1) Abx coverage per internal med 2) rheumatology consult 3) 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
[2025-07-17 09:00] VITALS: BP 123/89; PULSE 109; RESP 17; TEMP 99; O2SAT 99
[2025-07-17 09:03] LABS: Albumin 3.8 g/dL (3.2-4.8); Anion Gap 12 (5-15); BUN/Creatinine Ratio 11.6 (10.0-20.0); Calcium 9.7 mg/dL (8.7-10.4); Carbon Dioxide 28 mmol/L (20-31); Potassium 3.8 mmol/L (3.5-5.1); Sodium 138 mmol/L (136-145)
[2025-07-17 09:04] LABS: Alanine Aminotransferase 51 U/L (7-40); Alkaline Phosphatase 196 U/L (46-116); Bilirubin, Total 0.3 mg/dL (0.2-1.0); Blood Urea Nitrogen 8 mg/dL (9-23); Chloride 98 mmol/L (98-107); Glucose 120 mg/dL (74-106); Total Protein 9.0 g/dL (5.7-8.2)
[2025-07-17 13:00] VITALS: BP 126/98; PULSE 112; RESP 18; TEMP 99.5; O2SAT 98
--- NOTE | 2025-07-17 16:39 | DVHPNRES ---
Progress Note Date Seen: Jul 17, 2025 Resident Creating Document: NAHID CORTEZ Medical Necessity Reason Pt with a Central, PICC or Fol: No Subjective Review of Systems This is a 35-year-old male past medical history of right hip pain , osteoarthritis , HLD, Anemia , GERD sent from PCP office to rule out tachycardia. In ER patient heart rate became 140 but denies any SOB, chest pain, headache, cough or any other acute symptoms. Patient was recently discharged from hospital on 07/03/2025 due to right hip septic arthritis and treated with IV antibiotic vancomycin and levofloxacin. Rt hip MRI (07/01/25): Right hip joint effusion with asymmetric severe right hip joint space loss and suspected developing osseous erosion. Primary diagnosis of exclusion is septic arthritis. Alternative differential includes crystalline deposition arthropathy such as pseudogout versus gout. RIGHT KNEE ULTRASOUND ON 06/30/2025: Complex fluid above the right knee. Right knee aspiration by IR on 07/01/2025: Unsuccessful attempt to aspirate fluid in the suprapatellar area on the right. Patient denies any recent history of fall trauma sick contact. Sexually active with one partner denies any penile discharge, dysuria. No fever, chest pain, cough, abdominal pain, headache, any focal weakness noted. Past medical history: Dyslipidemia, microcytic anemia, gastritis. Surgical history: Nothing contributory Family history: breast cancer, stomach cancer - aunt Social history: Lives in [place] with family (next of kin is ). Ex tobacco use and quit a proximally five years ago. Denies EtOH or illicit drug use. Allergies: Penicillin Home medication: Ibuprofen PCP: Dr. Brooks. On 07/14, the patient was seen and examined at the bedside. Patient is feeling better since admission but still complaining of right knee pain. On 07/15, patient is seen and examined at the bedside, pain has improved, joint aspiration has been performed, waiting results. On 07/16, the patient seen and examined at the bedside patient is feeling better and does not have any complaint. Orthopedic is planning for joint irrigation on 07/17. On 07/17, The patient is seen and examined at bedside. No new complaints. Orthopedics recommending hematology and rheumatology consult. Objective vital signs Vital Sign Date Time Temp Pulse Resp B/P (MAP) Pulse Ox O2 Delivery O2 Flow Rate FiO2 07/17/25 09:00 99.0 109 17 123/89 (100) 99 99.0 07/17/25 08:00 Room Air* 0 21 Total Intake and Output 07/16/25 07/16/25 07/17/25 15:00 23:00 07:00 Intake Total 1275 ml 2000 ml Output Total 2375 ml 1700 ml Balance -1100 ml 300 ml medications Current Medications Medications Dose Ordered Sig/Merly Route Start Time Stop Time Status Last Admin Dose Admin Sodium Chloride 1,000 ml @ 120 mls/hr Q8H20M IV 07/13/25 21:15 07/17/25 00:15 120 MLS/HR Enoxaparin Sodium 40 mg DAILY SC 07/14/25 10:00 07/17/25 10:00 40 MG Acetaminophen 650 mg Q6HP PRN PO 07/13/25 21:15 07/17/25 16:02 650 MG Doxycycline Monohydrate 100 mg Q12HR PO 07/14/25 10:00 07/17/25 10:00 100 MG Famotidine 20 mg Q12HR PO 07/14/25 10:00 07/17/25 10:00 20 MG Vancomycin HCl 0 ml @ 0 mls/hr PER PHARMACY IV 07/14/25 03:15 Ceftriaxone Sodium 50 ml @ 100 mls/hr DAILY@09 IV 07/14/25 09:00 07/17/25 10:00 100 MLS/HR Vancomycin HCl 250 ml @ 250 mls/hr Q10H IV 07/15/25 14:00 07/17/25 16:02 250 MLS/HR Examination General Appearance: Alert, Oriented X3, Cooperative, No acute distress HEENT: Atraumatic, PERRLA, EOMI, Mucous membrane moist/pink Respiratory: Clear to auscultation, Normal air movement Cardiovascular: Regular rate, Normal S1, Normal S2, No murmurs, no chest wall tenderness Abdominal: Normal bowel sounds, Soft, No tenderness, No hepatospenomegaly, No masses Extremities: Right knee is swollen, tender, warm and mildly red. Skin: No rashes, No breakdown, No significant lesion Neuro: Normal gait, Normal speech, Strength at 5/5 X4 ext, Normal tone, Sensation intact, Cranial nerves 3-12 NL, Reflexes 2+ Psych/Mental Status: Mental status NL, Mood NL laboratory and microbiology Laboratory Tests 07/17/25 04:52 Test 07/17/25 04:52 Range/Units Serum Glucose 120 H 74-106 mg/dL Microbiology Date/Time Source Procedure Growth Status 07/14/25 19:53 Knee Anaerobic Culture - Preliminary No growth Resulted 07/13/25 23:20 Blood Blood Culture - Preliminary NO GROWTH AFTER 72 HOURS OF INCUBATION. Resulted Problem List/Assessment/Plan Problem List/Assessment/Plan Assessment and plan Right knee septic arthritis Questionable gout/pseudogout Sepsis, due to above Tachycardia likely sepsis Rule out pulmonary embolism Microcytic hypochromic anemia possible ACD Thrombocytosis likely reactive Substance abuse disorder MRI shows, Large amount of complex fluid in the joint, likely correlating with the complex fluid collection seen on ultrasound. Plan/recommendation: Empiric antibiotic vancomycin, doxycycline and Rocephin Blood culture Consulted IR for drainage Consulted Orthopedic DIET: NPO DVT PROPHYLAXIS: CODE STATUS: Goal of care discussed for more than 18 minutes, full code DISPOSITION: Med/surge Patient's status and plan discussed with the patient. Case discussed with Dr. Kay. Plan discussed with: Patient My Orders My Orders Orders - NAHID CORTEZ Procedure Category Date Status Time Comprehensive LAB 07/18/25 Verified Metabolic Panel 04:00 Date of Service: Jul 17, 2025 Billing Provider: PATT KAY DO Common Visit Codes: [id number] INP/OBS CARE(HIGH) NAHID CORTEZ Jul 17, 2025 16:39 PATT KAY DO Jul 18, 2025 11:19
[2025-07-17 17:00] VITALS: BP 128/84; PULSE 113; RESP 16; TEMP 99.4; O2SAT 99
[2025-07-17 21:00] VITALS: BP 140/92; PULSE 138; RESP 17; TEMP 99.4; O2SAT 100
[2025-07-18 01:00] VITALS: BP 123/85; PULSE 126; RESP 17; TEMP 99.7; O2SAT 98
[2025-07-18 05:00] VITALS: BP 119/85; PULSE 120; RESP 17; TEMP 97.9; O2SAT 100
[2025-07-18 06:20] LABS: Hemoglobin 9.3 g/dL (13.5-17.5)
[2025-07-18 06:23] LABS: Hematocrit 28.7 % (41.0-53.0); Mean Corpuscular Hemoglobin 23.5 pg (28.0-32.0); Mean Corpuscular Volume 72.4 fL (80.0-100.0); Nucleated Red Blood Cells % 0.0 %
[2025-07-18 06:29] LABS: Albumin 3.8 g/dL (3.2-4.8); Anion Gap 9 (5-15); BUN/Creatinine Ratio 12.5 (10.0-20.0); Blood Urea Nitrogen 9 mg/dL (9-23); Calcium 9.7 mg/dL (8.7-10.4); Carbon Dioxide 29 mmol/L (20-31); Chloride 101 mmol/L (98-107); Glucose 92 mg/dL (74-106); Potassium 4.0 mmol/L (3.5-5.1); Sodium 139 mmol/L (136-145)
[2025-07-18 06:32] LABS: Alanine Aminotransferase 49 U/L (7-40); Alkaline Phosphatase 204 U/L (46-116); Bilirubin, Total 0.3 mg/dL (0.2-1.0); Total Protein 8.9 g/dL (5.7-8.2)
[2025-07-18 09:00] VITALS: BP 133/89; PULSE 113; RESP 16; TEMP 98.1; O2SAT 100
[2025-07-18] MEDS ORDERED: FOLITAB22 PO (09:04)
[2025-07-18] MEDS ORDERED: AUG875T PO (09:04)
[2025-07-18] MEDS ORDERED: METH2.5T PO (09:04)
--- NOTE | 2025-07-18 09:07 | DVHDSRES ---
Discharge Summary Date of Admission Resident Creating Document: NAHID CORTEZ RESIDENT Jul 13, 2025 at 21:09 Date of Discharge: Jul 16, 2025 Labs/Diagnostic Data: Laboratory Results Test 07/18/25 04:40 07/16/25 18:49 07/15/25 05:41 07/14/25 19:53 White Blood Count 7.0 10^3/uL (4.4-10.8) Red Blood Count 3.97 10^6/uL (4.5-5.90) Hemoglobin 9.3 g/dL (13.5-17.5) Hematocrit 28.7 % (41.0-53.0) Mean Corpuscular Volume 72.4 fL (80.0-100.0) Mean Corpuscular Hemoglobin 23.5 pg (28.0-32.0) Mean Corpuscular Hemoglobin Concent 32.4 g/dL (32.0-36.0) Red Cell Distribution Width 19.7 % (11.8-14.3) Platelet Count 705 10^3/uL (140-450) Mean Platelet Volume 6.9 fL (6.9-10.8) Neutrophils (%) (Auto) 63.2 % (37.0-80.0) Lymphocytes (%) (Auto) 20.0 % (10.0-50.0) Monocytes (%) (Auto) 13.9 % (0.0-12.0) Eosinophils (%) (Auto) 1.7 % (0.0-7.0) Basophils (%) (Auto) 1.2 % (0.0-2.0) Neutrophils # (Auto) 4.4 10 ^3/uL (1.6-8.6) Lymphocytes # (Auto) 1.4 10 ^3/uL (0.4-5.4) Monocytes # (Auto) 1.0 10 ^3/uL (0-1.3) Eosinophils # (Auto) 0.1 10 ^3/uL (0-0.8) Basophils # (Auto) 0.1 10 ^3/uL (0-0.2) Nucleated Red Blood Cells 0.0 % Sodium Level 139 mmol/L (136-145) Potassium Level 4.0 mmol/L (3.5-5.1) Chloride Level 101 mmol/L (98-107) Carbon Dioxide Level 29 mmol/L (20-31) Anion Gap 9 (5-15) Blood Urea Nitrogen 9 mg/dL (9-23) Creatinine 0.72 mg/dL (0.700-1.30) Glomerular Filtration Rate Calc 124 mL/min (>90) BUN/Creatinine Ratio 12.5 (10.0-20.0) Serum Glucose 92 mg/dL (74-106) Calcium Level 9.7 mg/dL (8.7-10.4) Total Bilirubin 0.3 mg/dL (0.2-1.0) Aspartate Amino Transferase (AST) 27 U/L (13-40) Alanine Aminotransferase (ALT) 49 U/L (7-40) Alkaline Phosphatase 204 U/L (46-116) Total Protein 8.9 g/dL (5.7-8.2) Albumin 3.8 g/dL (3.2-4.8) Vancomycin Level Trough 12.8 ug/mL (5-10) Creatine Kinase 46 U/L (46-171) Body Fluid Source Rt. knee fluid Body Fluid pH 7.0 Body Fluid WBC (Manual) 2975 CUMM (0-200) Body Fluid RBC (Manual) 475 CUMM (0-2000) Body Fluid Mononuclear Cells 45 % Body Fluid Polymorphonuclear Cells 55 % (0-25) Test 07/14/25 02:07 07/13/25 19:33 07/13/25 18:24 07/13/25 17:29 Uric Acid 4.3 mg/dL (3.7-9.2) Rheumatoid Factor 19.7 IU/mL (<14.0) Anti-Nuclear Antibody Screen Negative (Negative) Urine Color Light-yellow (Yellow) Urine Clarity Clear (Clear) Urine pH 6.5 (5.0-9.0) Urine Specific [place] 1.016 (1.001-1.035) Urine Protein Trace (Negative) Urine Ketones 2+ (Negative) Urine Blood Trace /uL (Negative) Urine Nitrite Negative (Negative) Urine Bilirubin Negative (Negative) Urine Urobilinogen Normal mg/dL (Negative) Urine Leukocyte Esterase Negative /uL (Negative) Urine RBC 2 /hpf (0 - 3) Urine Microscopic WBC 1 /HPF (0-3) Urine Squamous Epithelial Cells None seen /hpf (<5) Urine Bacteria None seen /hpf (None Seen) Urine Glucose Normal mg/dL (Normal) Urine Opiates Screen Neg (NEGATIVE) Urine Fentanyl Screen Pos (NEGATIVE) Urine Barbiturates Screen Neg (NEGATIVE) Urine Phencyclidine Screen Neg (NEGATIVE) Urine Amphetamines Screen Neg (NEGATIVE) Urine Benzodiazepines Screen Neg (NEGATIVE) Urine Cocaine Screen Neg (NEGATIVE) Urine Cannabinoids Screen Neg (NEGATIVE) Chlamydia trachomatis (GERA) Negative (Negative) Neisseria gonorrhoeae (GERA) Negative (Negative) Troponin I High Sensitivity < 3 ng/L (</=54) Erythrocyte Sedimentation Rate 111 mm/hr (0-20) Reticulocyte Count (auto) 0.83 % (0.5-1.5) Prothrombin Time 12.8 sec (9.3-11.8) Prothrombin Time INR 1.23 (0.9-1.15) D-Dimer, Quantitative 10.29 mg/L FEU (0.0-0.49) C-Reactive Protein High Sensitivity 19.97 mg/dL (<1.0) Hepatitis A Antibody Total Positive (Negative) Hepatitis B Surface Antigen Negative (Negative) Hepatitis B Surface Antibody Positive (Negative) Hepatitis B Core Total Antibody Negative (Negative) Hepatitis C Antibody Negative (Negative) HIV (1&2) Antibody Negative (Negative) Other Laboratory Tests 07/18/25 04:40 Brief Hx & Hospital Course: HISTORY OF PRESENT ILLNESS: This is a 35-year-old male past medical history of right hip pain , osteoarthritis , HLD, Anemia , GERD sent from PCP office to rule out tachycardia. In ER patient heart rate became 140 but denies any SOB, chest pain, headache, cough or any other acute symptoms. Patient was recently discharged from hospital on 07/03/2025 due to right hip septic arthritis and treated with IV antibiotic vancomycin and levofloxacin. Rt hip MRI (07/01/25): Right hip joint effusion with asymmetric severe right hip joint space loss and suspected developing osseous erosion. Primary diagnosis of exclusion is septic arthritis. Alternative differential includes crystalline deposition arthropathy such as pseudogout versus gout. RIGHT KNEE ULTRASOUND ON 06/30/2025: Complex fluid above the right knee. Right knee aspiration by IR on 07/01/2025: Unsuccessful attempt to aspirate fluid in the suprapatellar area on the right. Patient denies any recent history of fall trauma sick contact. Sexually active with one partner denies any penile discharge, dysuria. No fever, chest pain, cough, abdominal pain, headache, any focal weakness noted. HOSPITAL COURSE: Patient was admitted on the line of possible septic arthritis, MRI performed showed, MRI shows, Large amount of complex fluid in the joint, likely correlating with the complex fluid collection seen on ultrasound. Patient was started on empiric antibiotic of vancomycin, doxycycline and Rocephin. Orthopedic consulted, performed a thoracentesis, synovial fluid analysis showed inflammatory refill him and synovial fluid culture showed no growth. CBC showed moderate anemia, thrombocytosis, CRP on ESR was raised, and rheumatoid factor was positive. Based on ACR/UL a classification criteria for rheumatoid arthritis, patient had high probability of rheumatoid arthritis. On 07/18, patient was feeling better since admission, does not have any active complaint. Discharge plan discussed with the patient the patient discharged home. FINAL DIAGNOSIS: Possible Right knee septic arthritis Sepsis due to above Ruled out gout/pseudogout Rheumatoid arthritis Tachycardia likely sepsis Rule out pulmonary embolism Microcytic hypochromic anemia possible ACD Thrombocytosis likely reactive Substance abuse disorder DISCHARGE PLAN: Follow up with the PCP within 1 week of the discharge. Follow up rheumatology on outpatient basis. Follow up with Hematology on outpatient basis Follow up with the discharge Clinic within 1 week of discharge. Methotrexate 10 mg weekly Folic acid 1 mg daily. Augmentin 875 mg BID for 4 days Check CBC, and CMP within 2 week of the discharge. Condition at Discharge: Good Final Diagnosis/Problems List Rheumatic arthritis Discharge Disposition: Home Discharge Instruct/Medications Diet: Regular Activity: No Restrictions, As Tolerated Follow Up/Referral: Follow up with the PCP within 1 week of the discharge. Follow up rheumatology on outpatient basis. Follow up with the discharge Clinic within 1 week of discharge. Medications: Methotrexate 7.5 mg weekly Folic acid 1 mg daily. Scheduled Amoxicillin & Pot Clavulanate (Augmentin Tablet), 875 MG PO BID Folic Mhoe-Lzbsqyvzor-Wefwucub (Folbic), 1 TAB PO DAILY Levofloxacin Hemihydrate (Levaquin 500 Mg), 1 TAB PO DAILY Methotrexate (Methotrexate), 4 TAB PO QWEEKLY Scheduled PRN Ibuprofen (Ibuprofen), 800 MG PO Q8HP PRN Discharge Statement: "Patient was advised to return to the ER or call 911 if any headaches, dizziness, shortness of breath, chest pain, abdominal pain, bleeding, fevers, or worsening of medical condition. Patient was counseled about treatment plan, medications, possible side effects, patientverbalized understanding. All questions were answered to the best of my ability. This discharge took greater then 30 minutes in planning, reviewing documentation, counseling the patient, and discussing with other team members." ASSESSMENT ASSESSMENT Assessment Rheumatic arthritis Visit Coding STANDARD RES Billing Provider: PATT KAY DO Date of Service if different f: Jul 18, 2025 Common Visit Codes: 02522-SKD/OBS DISCH DAY >30min Visit Coding STANDARD RES Billing Provider: PATT KAY DO Date of Service if different f: Jul 18, 2025 Common Visit Codes: 35472-BGK/OBS DISCH DAY >30min MARTHA ANNE RESDIENT Jul 18, 2025 09:07
[2025-07-18 10:17] VITALS: BP 119/85; PULSE 120; RESP 17; TEMP 97.9; O2SAT 100
== END 2025-07-18 11:00 | disposition home or self-care (01) | DRG 720 ==
LOC: ER 15:40 → OVERFLOW 21:09 → EAST 07-14 16:13
PROVIDERS: ADMIT Student in an Organized Health Care Education/Training Program; ATTEND Student in an Organized Health Care Education/Training Program
DX: A41.9 Sepsis, unspecified organism (principal); M00.9 Pyogenic arthritis, unspecified; M06.9 Rheumatoid arthritis, unspecified; D50.9 Iron deficiency anemia, unspecified; D75.839 Thrombocytosis, unspecified; M25.461 Effusion, right knee; M70.41 Prepatellar bursitis, right knee; E78.5 Hyperlipidemia, unspecified; K21.9 Gastro-esophageal reflux disease without esophagitis; Z88.0 Allergy status to penicillin; Z80.3 Family history of malignant neoplasm of breast; Z80.0 Family history of malignant neoplasm of digestive organs; Z87.891 Personal history of nicotine dependence
CPT/HCPCS: 36415; 71045; 71275; 73721; 76881; 80048; 80053; 80202; 80307; 81001; 82550; 82565; 83986; 84484; 84550; 85025; 85045; 85379; 85610; 85652; 86038; 86141; 86431; 86703; 86704; 86706; 86708; 86803; 86850; 86900; 86901; 87040; 87071; 87075; 87081; 87205; 87340; 89051; 93005; 93970; 96365; G0378